=== PATIENT | male | born 1945 | race Caucasian/White ===

== ENCOUNTER 2021-07-14 15:05 | Outpatient (CLI) | payer MEDICARE | END 2021-07-14 15:06 | disposition critical access hospital (66) | LOC: EMS 15:05 | DX: M25.552 Pain in left hip (principal); M54.50 Low back pain, unspecified; R10.32 Left lower quadrant pain; W01.0XXA Fall on same level from slipping, tripping and stumbling without subsequent striking against object, initial encounter; Y93.E5 Activity, floor mopping and cleaning; Y92.008 Other place in unspecified non-institutional (private) residence as the place of occurrence of the external cause | CPT/HCPCS: A0425; A0429 ==

== ENCOUNTER 2021-07-14 15:49 | Inpatient (IN) | payer MEDICARE, OTHER ==
[2021-07-14] MEDS ORDERED: MORPHINE 2 MG/ML CARPUJECT IVP STA (15:58)
[2021-07-14 16:22] LABS: BASOPHILS % (AUTO) 0.3 %; EOSINOPHILS # (AUTO) 0.1 10^3/uL (0.0-0.7); EOSINOPHILS % (AUTO) 1.6 %; HCT - HEMATOCRIT 49.3 % (42.0-52.0); HGB - HEMOGLOBIN 15.8 g/dL (14.0-18.0); LYMPHOCYTES # (AUTO) 0.8 10^3/uL (1.5-3.5); LYMPHOCYTES % (AUTO) 12.4 %; MEAN CORPUSCULAR HEMOGLOBIN 28.7 pg (27.0-31.0); MEAN CORPUSCULAR VOLUME 89.6 fL (80.0-94.0); MEAN PLATELET VOLUME 10.5 fL (7.4-11.4); MONOCYTES # (AUTO) 0.6 10^3/uL (0.0-1.0); MONOCYTES % (AUTO) 8.9 %; NEUTROPHILS # (AUTO) 5.1 10^3/uL (1.5-6.6); NEUTROPHILS % (AUTO) 75.8 %; PLT - PLATELET COUNT 216 10^3/uL (130-450); WHITE BLOOD COUNT 6.7 x10^3/uL (4.8-10.8)
[2021-07-14 16:25] LABS: CALCIUM 9.3 mg/dL (8.5-10.3); CREATININE 1.2 mg/dL (0.6-1.2); POTASSIUM 4.7 mmol/L (3.5-5.0)
[2021-07-14] MEDS ORDERED: HYDROmorphone 1 MG/ML CARPUJECT IVP STA (16:43)
--- NOTE | 2021-07-14 16:51 | ED Physician Documentation ---
PD HPI LOWER EXT INJURY - Stated complaint Stated Complaint: FALL/LFT HIP PX - Chief complaint Chief Complaint: Trauma Ext - History obtained from History obtained from: Patient, EMS - History of Present Illness PD HPI LOW EXT INJURY LOCATION: Left, Hip Type of injury: Fall Where injury occurred: Home Timing - onset: How many hours ago (1) Timing - duration: Hours (1) Timing - details: Abrupt onset Pain level max: 9 Pain level now: 9 Improved by: Rest, Ice, Immobilization Worsened by: Moving, Palpating Associated symptoms: No: Weakness, Numbness, Tingling, Swelling Contributing factors: No: Anticoagulated Recently seen: Not recently seen - Additional information Additional information: 76-year-old male was in the kitchen today mopping the floor when he slipped fell and injured his left hip. Patient was unable to get up off the floor and unable to walk. Worse with movement, nothing makes it better. Review of Systems Ten Systems: 10 systems reviewed and negative Constitutional: denies: Fever, Chills GI: denies: Vomiting, Diarrhea Skin: denies: Rash PD PAST MEDICAL HISTORY - Past Medical History Past Medical History: Yes Cardiovascular: Hypertension, High cholesterol, Atrial fibrillation Respiratory: Other Neuro: Dementia Endocrine/Autoimmune: Other GI: GERD, Hemorrhoids Psych: Depression Musculoskeletal: Osteoarthritis - Past Surgical History Past Surgical History: Yes Ortho: Hip replacement, Knee replacement Cardiovascular: CABG Derm: Skin cancer surgery - Present Medications Home Medications: Ambulatory Orders Medication Instructions Recorded Confirmed Atorvastatin [Lipitor] 20 mg PO QPM 07/14/21 07/14/21 Clopidogrel [Plavix] 75 mg PO DAILY 07/14/21 07/14/21 Donepezil [Aricept] 5 mg PO QPM 07/14/21 07/14/21 Ferrous Sulfate 325 mg PO DAILY 07/14/21 07/14/21 Fluoxetine HCl [Prozac] 20 mg PO BID 07/14/21 07/14/21 Losartan [Cozaar] 50 mg PO DAILY 07/14/21 07/14/21 Metoprolol Succinate [Toprol Xl] 50 mg PO DAILY 07/14/21 07/14/21 Pantoprazole Sodium 40 mg PO DAILY 07/14/21 07/14/21 Spironolactone [Aldactone] 25 mg PO DAILY 07/14/21 07/14/21 Tamsulosin [Flomax] 0.4 mg PO DAILY 07/14/21 07/14/21 - Allergies Allergies/Adverse Reactions: Allergies Allergy/AdvReac Type Severity Reaction Status Date / Time No Known Drug Allergies Allergy Verified 07/14/21 15:57 - Social History Does the pt smoke?: No Smoking Status: Never smoker Does the pt drink ETOH?: Yes ETOH Use: Wine, Beer, Liquor Does the pt have substance abuse?: No - Immunizations Immunizations are current?: Yes - POLST Patient has POLST: No PD ED PE NORMAL - Vitals Vital signs reviewed: Yes - General General: Alert and oriented X 3, No acute distress - HEENT HEENT: Atraumatic, PERRL, Moist mucous membranes, Pharynx benign - Neck Neck: Supple, no meningeal sign, No bony TTP - Cardiac Cardiac: RRR - Respiratory Respiratory: No respiratory distress, Clear bilaterally - Back Back: No spinal TTP (No midline tenderness to palpation or percussion. No step-off or deformity) - Derm Derm: Warm and dry - Extremities Extremities: Other (Tender to palpation over the left hip, greater trochanter. Leg is held in flexion. Neurovascularly intact. Any range of motion causes pain) - Neuro Neuro: Alert and oriented X 3 - Psych Psych: Normal mood, Normal affect Results - Vitals Vitals: Vital Signs - 24 hr 07/14/21 15:49 Temperature 36.9 C Heart Rate 65 Respiratory 16 Rate Blood Pressure 170/103 H O2 Saturation 98 Oxygen O2 Source Room air - Labs Labs: Laboratory Tests 07/14/21 07/14/21 07/14/21 16:10 16:10 16:57 WBC 6.7 RBC 5.50 Hgb 15.8 Hct 49.3 MCV 89.6 MCH 28.7 MCHC 32.0 RDW 13.0 Plt Count 216 MPV 10.5 Neut # (Auto) 5.1 Lymph # (Auto) 0.8 L Wood # (Auto) 0.6 Eos # (Auto) 0.1 Baso # (Auto) 0.0 Absolute Nucleated RBC 0.00 Nucleated RBC % 0.0 Sodium 139 Potassium 4.7 Chloride 102 Carbon Dioxide 28 Anion Gap 9.0 BUN 22 H Creatinine 1.2 Estimated GFR (MDRD) 59 L Glucose 112 H Calcium 9.3 Nasal Adenovirus (PCR) NOT DETECTED Nasal B. parapertussis DNA (PCR) NOT DETECTED Nasal Coronavir 229E PCR NOT DETECTED Nasal Coronavir HKU1 PCR NOT DETECTED Nasal Coronavir NL63 PCR NOT DETECTED Nasal Coronavir OC43 PCR NOT DETECTED Nasal Enterovir/Rhinovir PCR NOT DETECTED Nasal Influenza B PCR NOT DETECTED Nasal Influenza A PCR NOT DETECTED Nasal Parainfluen 1 PCR NOT DETECTED Nasal Parainfluen 2 PCR NOT DETECTED Nasal Parainfluen 3 PCR NOT DETECTED Nasal Parainfluen 4 PCR NOT DETECTED Nasal RSV (PCR) NOT DETECTED Nasal B.pertussis DNA PCR NOT DETECTED Nasal C.pneumoniae (PCR) NOT DETECTED Carlos Human Metapneumo PCR NOT DETECTED Nasal M.pneumoniae (PCR) NOT DETECTED Nasal SARS-CoV-2 (PCR) NOT DETECTED - Rads (name of study) Left hip x-ray Radiology: Final report received, EMP read contemporaneously, See rad report (Left femoral neck fracture. ) cxr Radiology: Final report received, EMP read contemporaneously, See rad report (No acute process.) PD MEDICAL DECISION MAKING - ED course Complexity details: reviewed results, re-evaluated patient, considered differential, d/w patient, d/w vmware consultant ED course: Patient is a 76-year-old male who presents to the emergency department with a left hip fracture. Discussed the case with orthopedics, Dr. Jama who will plan on seeing the patient tomorrow. The patient will be admitted to the hospitalist service. Discussed with Dr. Delaney, hospitalist who accepts. No other acute injuries. Pain well controlled. Neurovascular intact. This document was made in part using voice recognition software. While efforts are made to proofread this document, sound alike and grammatical errors may oc cur. Departure - Departure Disposition: 66 [facility] DC/Xfer Clinical Impression: Hip fracture, left Qualifiers: Encounter type: initial encounter Fracture type: closed Qualified Code(s): S72.002A - Fracture of unspecified part of neck of left femur, initial encounter for closed fracture Condition: Stable Discharge Date/Time: 07/14/21 18:26
--- NOTE | 2021-07-14 16:57 | XRAY Report ---
PROCEDURE: Hip w/Pelvis 2-3V LT INDICATIONS: fall, hip pain TECHNIQUE: AP pelvis with lateral view(s) of the left hip. COMPARISON: None. FINDINGS: Bones: Moderately displaced and angulated left femoral neck fracture. Right hip arthroplasty. Pelvic ring appears intact. No suspicious bony lesions. Soft tissues: The visualized bowel gas pattern is normal. No suspicious soft tissue calcifications. IMPRESSION: Left femoral neck fracture. Reviewed by: Hilton Garcia MD on 07/14/2021 4:56 PM PST Approved by: Hilton Garcia MD on 07/14/2021 4:56 PM PST Station ID: [id number]
--- NOTE | 2021-07-14 16:58 | XRAY Report ---
PROCEDURE: Chest 1 View X-Ray INDICATIONS: pre=op TECHNIQUE: One view of the chest was acquired. COMPARISON: None FINDINGS: Surgical changes and devices: Median sternotomy. Lungs and pleura: No pleural effusions or pneumothorax. Lungs are clear. Mediastinum: Mediastinal contours appear normal. Heart size is normal. Bones and chest wall: No suspicious bony lesions. Overlying soft tissues appear unremarkable. IMPRESSION: No acute process. Reviewed by: Hilton Garcia MD on 07/14/2021 4:56 PM [facility] Approved by: Hilton Garcia MD on 07/14/2021 4:56 PM [facility] Station ID: [id number]
[2021-07-14] MEDS ORDERED: ONDANSETRON ODT 4 MG TABLET TL PRN (17:14)
[2021-07-14] MEDS ORDERED: ONDANSETRON 4 MG/2 ML VIAL IVP PRN (17:14)
--- NOTE | 2021-07-14 18:16 | PHARMACY PROGRESS NOTE ---
- Best Possible Medication History Admit Date and Time: 07/14/21 5853 Processed by: Nursing Medication History completed: Yes As the person ultimately responsible for medication therapy, providers are able to order a medication from an existing home medication list in [facility] via the "Reconcile Routine" prior to Confirmation of that medication by support teacher. Such practice is discouraged except when the physician, in their clinical judgment, deems that a medical need exists for a medication without regard to previous use.
[2021-07-14 18:31] LABS: B. PARAPERTUSSIS- RESP PCR PAN NOT DETECTED; B. PERTUSSIS- RESP PCR PANEL NOT DETECTED; C. PNEUMONIAE- RESP PCR PANEL NOT DETECTED; CORONAVIRUS 229E-RESP PCR NOT DETECTED; CORONAVIRUS HKU1-RESP PCR NOT DETECTED; CORONAVIRUS NL63-RESP PCR NOT DETECTED; CORONAVIRUS OC43-RESP PCR NOT DETECTED; HUMAN METAPNEUMOVIRUS NOT DETECTED; INFLUENZA A- RESP PCR PANEL NOT DETECTED; INFLUENZA B - RESP PCR PANEL NOT DETECTED; M. PNEUMONIAE- RESP PCR PANEL NOT DETECTED; PARAINFLUENZA VIRUS 1 NOT DETECTED; PARAINFLUENZA VIRUS 2 NOT DETECTED; PARAINFLUENZA VIRUS 3 NOT DETECTED; PARAINFLUENZA VIRUS 4 NOT DETECTED; RHINOVIRUS/ENTEROVIRUS NOT DETECTED; RSV- RESP PCR PANEL NOT DETECTED; SARS-CoV-2 -RESP PCR PANEL NOT DETECTED
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
[2021-07-14] MEDS: oxyCODONE 5 MG TABLET PO PRN (20:43)
[2021-07-14] MEDS: MORPHINE 2 MG/ML CARPUJECT IVP PRN (23:13)
[2021-07-15] MEDS: SODIUM CHLORIDE FLUSH 0.9% 10 ML SYRINGE IVP SCH ×3 (01:49→15:06)
[2021-07-15] MEDS: MORPHINE 2 MG/ML CARPUJECT IVP PRN ×3 (02:10→08:44)
[2021-07-15 05:26] LABS: BASOPHILS % (AUTO) 0.3 %; EOSINOPHILS # (AUTO) 0.1 10^3/uL (0.0-0.7); EOSINOPHILS % (AUTO) 0.6 %; HCT - HEMATOCRIT 43.8 % (42.0-52.0); HGB - HEMOGLOBIN 14.2 g/dL (14.0-18.0); LYMPHOCYTES # (AUTO) 0.8 10^3/uL (1.5-3.5); LYMPHOCYTES % (AUTO) 7.8 %; MEAN CORPUSCULAR HEMOGLOBIN 28.7 pg (27.0-31.0); MEAN CORPUSCULAR HGB CONC 32.4 g/dL (32.0-36.0); MEAN CORPUSCULAR VOLUME 88.7 fL (80.0-94.0); MONOCYTES # (AUTO) 0.9 10^3/uL (0.0-1.0); MONOCYTES % (AUTO) 9.2 %; NEUTROPHILS # (AUTO) 8.1 10^3/uL (1.5-6.6); NEUTROPHILS % (AUTO) 81.7 %; PLT - PLATELET COUNT 223 10^3/uL (130-450); RED BLOOD COUNT 4.94 10^6/uL (4.70-6.10); WHITE BLOOD COUNT 9.9 x10^3/uL (4.8-10.8)
[2021-07-15 05:34] LABS: CREATININE 1.1 mg/dL (0.6-1.2); POTASSIUM 4.7 mmol/L (3.5-5.0)
[2021-07-15] MEDS ORDERED: SODIUM CHLORIDE 0.9% 1,000 ML IV SCH (08:00)
[2021-07-15 08:04] LABS: INR 1.2 (0.8-1.2); PT - PROTHROMBIN TIME 13.3 secs (9.9-12.6)
[2021-07-15] MEDS: METOPROLOL SUCCINATE 50 MG TABLET PO SCH ×2 (08:39→09:00)
[2021-07-15] MEDS ORDERED: METOPROLOL SUCCINATE 50 MG TABLET PO SCH (09:00)
[2021-07-15] MEDS ORDERED: ENOXAPARIN 40 MG/0.4 ML SYRINGE SUBQ SCH (09:00)
[2021-07-15] MEDS: TAMSULOSIN 0.4 MG CAPSULE PO SCH (09:00)
[2021-07-15 09:36] LABS: ESTIMATED AVERAGE GLUCOSE 128 mg/dL (70-100); HEMOGLOBIN A1c% 6.1 % (4.27-6.07)
[2021-07-15] MEDS: ACETAMINOPHEN 325 MG TABLET PO PRN ×3 (09:47→20:36)
[2021-07-15] MEDS: oxyCODONE 5 MG TABLET PO PRN ×3 (09:47→21:30)
[2021-07-15] MEDS: SODIUM CHLORIDE 0.9% 1,000 ML IV SCH ×2 (11:06→18:45)
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
--- NOTE | 2021-07-15 15:39 | PROVIDER PROGRESS NOTE ---
Subjective - Prog Note Date Prog Note Date: 07/15/21 - Subjective Pt reports feeling: Improved Subjective: pt report his left hip pain is better after he had pain meds. tele report he had 5.1 seconds pause on telemetry, pt is asymptomatic. After hold pt's metoprolol, his tele did not show pause yet. I called pt's risk compliance analyst Dr. Elie Chicas. he recommend as we already did, hold metoprolol, continue tele monitor. If pt's tele did not show pause, then pt may continue to have surgery and does not need pacemaker. If pt still has problem, then he need to be transferred. Dr. Chicas also explained why pt was not on anticoagulation on his afib/flutter, but on Plavix because pt hah hx of GI bleed and sensitive to aspirin. Orthopedics surgeon know pt's this condition, will hold surgery on today. Current Medications - Current Medications Current Medications: Active Medications Acetaminophen (Acetaminophen 325 Mg Tablet) 650 mg PO Q4HR PRN PRN Reason: Pain 1 to 4 Last Admin: 07/15/21 14:24 Dose: 650 mg Atorvastatin Calcium (Atorvastatin 10 Mg Tablet) 20 mg PO QPM [facility] Donepezil HCl (Donepezil 5 Mg Tablet) 5 mg PO QPM [facility] Enoxaparin Sodium (Enoxaparin 40 Mg/0.4 Ml Syringe) 40 mg SUBQ DAILY [facility] Ferrous Sulfate (Ferrous Sulfate 325 Mg Tablet) 325 mg PO DAILYWM [facility] Fluoxetine HCl (Fluoxetine 10 Mg Capsule) 20 mg PO BID [facility] Hydromorphone HCl (Hydromorphone 0.5 Mg/0.5 Ml Syringe) 0.5 mg IVP Q2H PRN PRN Reason: PAIN Sodium Chloride (Normal Saline 0.9%) 1,000 mls @ 83.3 mls/hr IV .Q12H1M [facility] Stop: 07/16/21 10:57 Last Admin: 07/15/21 11:06 Dose: 83.3 mls/hr Ondansetron HCl (Ondansetron Odt 4 Mg Tablet) 4 mg TL Q6HR PRN PRN Reason: Nausea / Vomiting Ondansetron HCl (Ondansetron 4 Mg/2 Ml Vial) 4 mg IVP Q6HR PRN PRN Reason: Nausea / Vomiting Oxycodone HCl (Oxycodone 5 Mg Tablet) 5 mg PO Q4HR PRN PRN Reason: Pain 5 to 7 Last Admin: 07/15/21 14:25 Dose: 5 mg Pantoprazole Sodium (Pantoprazole 40 Mg Tablet) 40 mg PO QDAC [facility] Polyethylene Glycol (Polyethylene Glycol 3350 17 Gm Packet) 17 gm PO DAILY [facility] Sodium Chloride (Sodium Chloride Flush 0.9% 10 Ml Syringe) 10 ml IVP PRN PRN PRN Reason: NEEDED PER PROVIDER ORDERS Sodium Chloride (Sodium Chloride Flush 0.9% 10 Ml Syringe) 10 ml IVP 0100,0900,1700 [facility] Last Admin: 07/15/21 15:06 Dose: Not Given Tamsulosin HCl (Tamsulosin 0.4 Mg Capsule) 0.4 mg PO DAILY [facility] Last Admin: 07/15/21 09:00 Dose: Not Given Atorvastatin [Lipitor] 20 mg PO QPM 07/14/21 Clopidogrel [Plavix] 75 mg PO DAILY 07/14/21 Donepezil [Aricept] 5 mg PO QPM 07/14/21 Ferrous Sulfate 325 mg PO DAILY 07/14/21 Fluoxetine HCl [Prozac] 20 mg PO BID 07/14/21 Losartan [Cozaar] 50 mg PO DAILY 07/14/21 Metoprolol Succinate [Toprol Xl] 50 mg PO DAILY 07/14/21 Pantoprazole Sodium 40 mg PO DAILY 07/14/21 Spironolactone [Aldactone] 25 mg PO DAILY 07/14/21 Tamsulosin [Flomax] 0.4 mg PO DAILY 07/14/21 Objective - Vital Signs/Intake & Output Vital Signs: Vital Signs x48h Pulse Resp BP Pulse Ox 07/15/21 08:40 65 16 114/67 94 Intake & Output: Intake & Output 07/12/21 07/13/21 07/14/21 07/15/21 23:59 23:59 23:59 23:59 Intake Total 1106.667 Output Total 300 600 Balance -300 506.667 - Objective General Appearance: positive: No acute distress, Alert. negative: Lethargic Eyes Bilateral: positive: Normal inspection ENT: positive: ENT inspection nml, No signs of dehydration. negative: Purulent nasal drainage Neck: positive: Nml inspection, Trachea midline. negative: Tracheal deviation Respiratory: positive: Chest non-tender, No respiratory distress. negative: Wheezes Cardiovascular: positive: Regular rate & rhythm, No murmur. negative: Tachycardia, Bradycardia, Systolic murmur, Diastolic murmur Peripheral Pulses: 2+ Radial (R), 2+ Radial (L) Abdomen: positive: Non-tender, Nml bowel sounds, No distention. negative: Tenderness Back: positive: Nml inspection Skin: positive: Color nml, Warm, Dry. negative: Cyanosis Extremities: positive: Non-tender, Nml appearance Neurologic/Psychiatric: positive: Sensation nml. negative: Weakness, Sensory loss, Facial droop, Slurred/abnml speech, Depressed mood/affect - Lab Results Fish Bones: 07/15/21 04:30 07/15/21 04:30 Other Labs: Lab Results x24hrs 07/15/21 07/15/21 07/15/21 Range/Units 07:53 07:53 04:30 WBC (4.8-10.8) x10^3/uL RBC (4.70-6.10) 10^6/uL Hgb (14.0-18.0) g/dL Hct (42.0-52.0) % MCV (80.0-94.0) fL MCH (27.0-31.0) pg MCHC (32.0-36.0) g/dL RDW (12.0-15.0) % Plt Count (130-450) 10^3/uL MPV (7.4-11.4) fL Neut # (Auto) (1.5-6.6) 10^3/uL Lymph # (Auto) (1.5-3.5) 10^3/uL [place] # (Auto) (0.0-1.0) 10^3/uL Eos # (Auto) (0.0-0.7) 10^3/uL Baso # (Auto) (0.0-0.1) 10^3/uL Absolute Nucleated RBC x10^3/uL Nucleated RBC % /100WBC PT 13.3 H (9.9-12.6) secs INR 1.2 (0.8-1.2) Sodium (135-145) mmol/L Potassium (3.5-5.0) mmol/L Chloride (101-111) mmol/L Carbon Dioxide (21-32) mmol/L Anion Gap (6-13) BUN (6-20) mg/dL Creatinine (0.6-1.2) mg/dL Estimated GFR (MDRD) (>89) Glucose (70-100) mg/dL Estimat Average Glucose 128 H (70-100) mg/dL Hemoglobin A1c % 6.1 H (4.27-6.07) % Calcium (8.5-10.3) mg/dL Troponin I High Sens 5.2 (2.3-19.7) ng/L Nasal Adenovirus (PCR) Nasal B. parapertussis DNA (PCR) Nasal Coronavir 229E PCR Nasal Coronavir HKU1 PCR Nasal Coronavir NL63 PCR Nasal Coronavir OC43 PCR Nasal Enterovir/Rhinovir PCR Nasal Influenza B PCR Nasal Influenza A PCR Nasal Parainfluen 1 PCR Nasal Parainfluen 2 PCR Nasal Parainfluen 3 PCR Nasal Parainfluen 4 PCR Nasal RSV (PCR) Nasal B.pertussis DNA PCR Nasal C.pneumoniae (PCR) [place] Human Metapneumo PCR Nasal M.pneumoniae (PCR) Nasal SARS-CoV-2 (PCR) 07/15/21 07/15/21 07/14/21 Range/Units 04:30 04:30 16:57 WBC 9.9 (4.8-10.8) x10^3/uL RBC 4.94 (4.70-6.10) 10^6/uL Hgb 14.2 (14.0-18.0) g/dL Hct 43.8 (42.0-52.0) % MCV 88.7 (80.0-94.0) fL MCH 28.7 (27.0-31.0) pg MCHC 32.4 (32.0-36.0) g/dL RDW 13.0 (12.0-15.0) % Plt Count 223 (130-450) 10^3/uL MPV 11.0 (7.4-11.4) fL Neut # (Auto) 8.1 H (1.5-6.6) 10^3/uL Lymph # (Auto) 0.8 L (1.5-3.5) 10^3/uL [place] # (Auto) 0.9 (0.0-1.0) 10^3/uL Eos # (Auto) 0.1 (0.0-0.7) 10^3/uL Baso # (Auto) 0.0 (0.0-0.1) 10^3/uL Absolute Nucleated RBC 0.00 x10^3/uL Nucleated RBC % 0.0 /100WBC PT (9.9-12.6) secs INR (0.8-1.2) Sodium 139 (135-145) mmol/L Potassium 4.7 (3.5-5.0) mmol/L Chloride 101 (101-111) mmol/L Carbon Dioxide 25 (21-32) mmol/L Anion Gap 13.0 (6-13) BUN 23 H (6-20) mg/dL Creatinine 1.1 (0.6-1.2) mg/dL Estimated GFR (MDRD) 65 L (>89) Glucose 151 H (70-100) mg/dL Estimat Average Glucose (70-100) mg/dL Hemoglobin A1c % (4.27-6.07) % Calcium 9.0 (8.5-10.3) mg/dL Troponin I High Sens (2.3-19.7) ng/L Nasal Adenovirus (PCR) NOT DETECTED Nasal B. parapertussis DNA (PCR) NOT DETECTED Nasal Coronavir 229E PCR NOT DETECTED Nasal Coronavir HKU1 PCR NOT DETECTED Nasal Coronavir NL63 PCR NOT DETECTED Nasal Coronavir OC43 PCR NOT DETECTED Nasal Enterovir/Rhinovir PCR NOT DETECTED Nasal Influenza B PCR NOT DETECTED Nasal Influenza A PCR NOT DETECTED Nasal Parainfluen 1 PCR NOT DETECTED Nasal Parainfluen 2 PCR NOT DETECTED Nasal Parainfluen 3 PCR NOT DETECTED Nasal Parainfluen 4 PCR NOT DETECTED Nasal RSV (PCR) NOT DETECTED Nasal B.pertussis DNA PCR NOT DETECTED Nasal C.pneumoniae (PCR) NOT DETECTED [place] Human Metapneumo PCR NOT DETECTED Nasal M.pneumoniae (PCR) NOT DETECTED Nasal SARS-CoV-2 (PCR) NOT DETECTED 07/14/21 07/14/21 Range/Units 16:10 16:10 WBC 6.7 (4.8-10.8) x10^3/uL RBC 5.50 (4.70-6.10) 10^6/uL Hgb 15.8 (14.0-18.0) g/dL Hct 49.3 (42.0-52.0) % MCV 89.6 (80.0-94.0) fL MCH 28.7 (27.0-31.0) pg MCHC 32.0 (32.0-36.0) g/dL RDW 13.0 (12.0-15.0) % Plt Count 216 (130-450) 10^3/uL MPV 10.5 (7.4-11.4) fL Neut # (Auto) 5.1 (1.5-6.6) 10^3/uL Lymph # (Auto) 0.8 L (1.5-3.5) 10^3/uL [place] # (Auto) 0.6 (0.0-1.0) 10^3/uL Eos # (Auto) 0.1 (0.0-0.7) 10^3/uL Baso # (Auto) 0.0 (0.0-0.1) 10^3/uL Absolute Nucleated RBC 0.00 x10^3/uL Nucleated RBC % 0.0 /100WBC PT (9.9-12.6) secs INR (0.8-1.2) Sodium 139 (135-145) mmol/L Potassium 4.7 (3.5-5.0) mmol/L Chloride 102 (101-111) mmol/L Carbon Dioxide 28 (21-32) mmol/L Anion Gap 9.0 (6-13) BUN 22 H (6-20) mg/dL Creatinine 1.2 (0.6-1.2) mg/dL Estimated GFR (MDRD) 59 L (>89) Glucose 112 H (70-100) mg/dL Estimat Average Glucose (70-100) mg/dL Hemoglobin A1c % (4.27-6.07) % Calcium 9.3 (8.5-10.3) mg/dL Troponin I High Sens (2.3-19.7) ng/L Nasal Adenovirus (PCR) Nasal B. parapertussis DNA (PCR) Nasal Coronavir 229E PCR Nasal Coronavir HKU1 PCR Nasal Coronavir NL63 PCR Nasal Coronavir OC43 PCR Nasal Enterovir/Rhinovir PCR Nasal Influenza B PCR Nasal Influenza A PCR Nasal Parainfluen 1 PCR Nasal Parainfluen 2 PCR Nasal Parainfluen 3 PCR Nasal Parainfluen 4 PCR Nasal RSV (PCR) Nasal B.pertussis DNA PCR Nasal C.pneumoniae (PCR) [place] Human Metapneumo PCR Nasal M.pneumoniae (PCR) Nasal SARS-CoV-2 (PCR) ABX Reporting Has patient been on IV antibiotics over the past 48 hours?: No Assessment/Plan - Problem List (1) Hip fracture, left Impression: will hold surgery on today because pt has 5.1 second pause in tele. called pt's risk compliance analyst, recommend hold metoprolol, and continue tele monitor pt. ECHO reveal normal EF without obvious regional wall motion abnormality, RVSP 42mmHG and mild abnormal right heart pressure. continue pain control, tele monitor pt. start with Lovenox for DVT prophylaxis per surgeon's recommend. pt had pre-surgical assessment by another provider: Patient's calculated NSQUIP risk is 6.7% for any complications and 5.8% for more serious complications. (2)pause in telemetry pt had 5.1 second pause in tele, will hold metoprolol, and continue tele monitor overnight for pt. (3) Fall Conclusion/Plan: fall on level ground at home today. (4) Diabetes Conclusion/Plan: pre-diabetes, A1C 6.1, continue followup with his PCP (5) Dementia Conclusion/Plan: Patient with documented history of dementia confirmed with his . He is oriented and able to recall all recent events. He struggles with some memory issues. resume home Aricept (6) Generalized arteriosclerotic disease Conclusion/Plan: Patient has a history of CABG and arteriosclerotic disease and afib/flutter. as discussed with pt's risk compliance analyst, pt has hx of GI bleed and sensitive to aspirin , now pt is on Plavix. will hold Plavix now, start with Lovenox for DVT prophylaxis (7) Atrial fibrillation Conclusion/Plan: pt is on tele, pt has not at Afib with RVR, hold metoprolol for his pause, will resume his home Plavix as d/c Qualifiers: Encounter type: initial encounter Fracture type: closed Qualified Code(s): S72.002A - Fracture of unspecified part of neck of left femur, initial encounter for closed fracture
[2021-07-15] MEDS: ENOXAPARIN 40 MG/0.4 ML SYRINGE SUBQ SCH (20:35)
[2021-07-15] MEDS: ATORVASTATIN 10 MG TABLET PO SCH (20:35)
[2021-07-15] MEDS: DONEPEZIL 5 MG TABLET PO SCH (20:35)
[2021-07-15] MEDS: FLUoxetine 10 MG CAPSULE PO SCH (20:35)
[2021-07-16] MEDS: SODIUM CHLORIDE FLUSH 0.9% 10 ML SYRINGE IVP SCH ×3 (00:30→17:07)
[2021-07-16] MEDS: ACETAMINOPHEN 325 MG TABLET PO PRN ×3 (02:32→16:42)
[2021-07-16] MEDS: oxyCODONE 5 MG TABLET PO PRN ×4 (02:32→23:02)
[2021-07-16 05:19] LABS: BASOPHILS % (AUTO) 0.4 %; EOSINOPHILS # (AUTO) 0.3 10^3/uL (0.0-0.7); EOSINOPHILS % (AUTO) 3.8 %; HCT - HEMATOCRIT 40.3 % (42.0-52.0); LYMPHOCYTES # (AUTO) 1.3 10^3/uL (1.5-3.5); LYMPHOCYTES % (AUTO) 19.8 %; MEAN CORPUSCULAR HGB CONC 32.3 g/dL (32.0-36.0); MEAN PLATELET VOLUME 10.9 fL (7.4-11.4); MONOCYTES # (AUTO) 0.7 10^3/uL (0.0-1.0); MONOCYTES % (AUTO) 10.9 %; NEUTROPHILS # (AUTO) 4.4 10^3/uL (1.5-6.6); NEUTROPHILS % (AUTO) 64.8 %; PLT - PLATELET COUNT 173 10^3/uL (130-450); RED BLOOD COUNT 4.48 10^6/uL (4.70-6.10); RED CELL DISTRIBUTION WIDTH 12.8 % (12.0-15.0); WHITE BLOOD COUNT 6.8 x10^3/uL (4.8-10.8)
[2021-07-16 05:23] LABS: CALCIUM 8.1 mg/dL (8.5-10.3); CREATININE 0.9 mg/dL (0.6-1.2); POTASSIUM 3.8 mmol/L (3.5-5.0)
[2021-07-16] MEDS: PANTOPRAZOLE 40 MG TABLET PO SCH (05:33)
[2021-07-16] MEDS: FLUoxetine 10 MG CAPSULE PO SCH ×2 (09:25→20:00)
[2021-07-16] MEDS: ENOXAPARIN 40 MG/0.4 ML SYRINGE SUBQ SCH (09:27)
[2021-07-16] MEDS: polyethylene glycoL 3350 17 GM PACKET PO SCH (09:28)
[2021-07-16] MEDS: SPIRONOLACTONE 25 MG TABLET PO SCH (09:29)
[2021-07-16] MEDS: TAMSULOSIN 0.4 MG CAPSULE PO SCH (09:29)
[2021-07-16] MEDS: FERROUS SULFATE 325 MG TABLET PO SCH ×2 (09:46→09:49)
[2021-07-16] MEDS ORDERED: FERROUS GLUCONATE 324 MG TABLET PO SCH (10:00)
--- NOTE | 2021-07-16 11:13 | ANESTHESIA ---
Pre-Anesthesia VS, & Labs - Diagnosis left hip fracture - Procedure left hip hemiprosthesis Vital Signs: Temp Pulse Resp BP Pulse Ox 36.8 C 63 20 134/63 H 97 07/16/21 08:00 07/16/21 08:00 07/16/21 08:00 07/16/21 08:00 07/16/21 08:00 Height: 6 ft Weight (kg): 99 kg Body Mass Index: 29.6 BMI Classification: Overweight - NPO >8 hours - Lab Results Current Lab Results: Laboratory Tests 07/16/21 04:40: Sodium 136, Potassium 3.8, Chloride 103, Carbon Dioxide 25, Anion Gap 8.0, BUN 20, Creatinine 0.9, Estimated GFR (MDRD) 82 L, Glucose 113 H, Calcium 8.1 L 07/16/21 04:40: WBC 6.8, RBC 4.48 L, Hgb 13.0 L, Hct 40.3 L, MCV 90.0, MCH 29.0, MCHC 32.3, RDW 12.8, Plt Count 173, MPV 10.9, Neut # (Auto) 4.4, Lymph # (Auto) 1.3 L, [place] # (Auto) 0.7, Eos # (Auto) 0.3, Baso # (Auto) 0.0, Absolute Nucleated RBC 0.00, Nucleated RBC % 0.0 07/15/21 07:53: PT 13.3 H, INR 1.2 07/15/21 07:53: Troponin I High Sens 5.2 07/15/21 04:30: Estimat Average Glucose 128 H, Hemoglobin A1c % 6.1 H 07/15/21 04:30: Sodium 139, Potassium 4.7, Chloride 101, Carbon Dioxide 25, Anion Gap 13.0, BUN 23 H, Creatinine 1.1, Estimated GFR (MDRD) 65 L, Glucose 151 H, Calcium 9.0 07/15/21 04:30: WBC 9.9, RBC 4.94, Hgb 14.2, Hct 43.8, MCV 88.7, MCH 28.7, MCHC 32.4, RDW 13.0, Plt Count 223, MPV 11.0, Neut # (Auto) 8.1 H, Lymph # (Auto) 0.8 L, [place] # (Auto) 0.9, Eos # (Auto) 0.1, Baso # (Auto) 0.0, Absolute Nucleated RBC 0.00, Nucleated RBC % 0.0 07/14/21 16:10: Sodium 139, Potassium 4.7, Chloride 102, Carbon Dioxide 28, Anion Gap 9.0, BUN 22 H, Creatinine 1.2, Estimated GFR (MDRD) 59 L, Glucose 112 H, Calcium 9.3 07/14/21 16:10: WBC 6.7, RBC 5.50, Hgb 15.8, Hct 49.3, MCV 89.6, MCH 28.7, MCHC 32.0, RDW 13.0, Plt Count 216, MPV 10.5, Neut # (Auto) 5.1, Lymph # (Auto) 0.8 L , [place] # (Auto) 0.6, Eos # (Auto) 0.1, Baso # (Auto) 0.0, Absolute Nucleated RBC 0.00, Nucleated RBC % 0.0 Lab results reviewed: Yes Fish Bones: 07/16/21 04:40 07/16/21 04:40 Home Medications and Allergies Home Medications: Ambulatory Orders Atorvastatin [Lipitor] 20 mg PO QPM 07/14/21 Clopidogrel [Plavix] 75 mg PO DAILY 07/14/21 Donepezil [Aricept] 5 mg PO QPM 07/14/21 Ferrous Sulfate 325 mg PO DAILY 07/14/21 Fluoxetine HCl [Prozac] 20 mg PO BID 07/14/21 Losartan [Cozaar] 50 mg PO DAILY 07/14/21 Metoprolol Succinate [Toprol Xl] 50 mg PO DAILY 07/14/21 Pantoprazole Sodium 40 mg PO DAILY 07/14/21 Spironolactone [Aldactone] 25 mg PO DAILY 07/14/21 Tamsulosin [Flomax] 0.4 mg PO DAILY 07/14/21 Active Medications Acetaminophen (Acetaminophen 325 Mg Tablet) 650 mg PO Q4HR PRN PRN Reason: Pain 1 to 4 Last Admin: 07/16/21 09:46 Dose: 650 mg Atorvastatin Calcium (Atorvastatin 10 Mg Tablet) 20 mg PO QPM [facility] Last Admin: 07/15/21 20:35 Dose: 20 mg Donepezil HCl (Donepezil 5 Mg Tablet) 5 mg PO QPM [facility] Last Admin: 07/15/21 20:35 Dose: 5 mg Enoxaparin Sodium (Enoxaparin 40 Mg/0.4 Ml Syringe) 40 mg SUBQ DAILY [facility] Last Admin: 07/16/21 09:27 Dose: Not Given Ferrous Sulfate (Ferrous Sulfate 325 Mg Tablet) 325 mg PO DAILYWM [facility] Last Admin: 07/16/21 09:49 Dose: Not Given Fluoxetine HCl (Fluoxetine 10 Mg Capsule) 20 mg PO BID [facility] Last Admin: 07/16/21 09:25 Dose: 20 mg Hydromorphone HCl (Hydromorphone 0.5 Mg/0.5 Ml Syringe) 0.5 mg IVP Q2H PRN PRN Reason: PAIN Ondansetron HCl (Ondansetron Odt 4 Mg Tablet) 4 mg TL Q6HR PRN PRN Reason: Nausea / Vomiting Ondansetron HCl (Ondansetron 4 Mg/2 Ml Vial) 4 mg IVP Q6HR PRN PRN Reason: Nausea / Vomiting Oxycodone HCl (Oxycodone 5 Mg Tablet) 5 mg PO Q4HR PRN PRN Reason: Pain 5 to 7 Last Admin: 07/16/21 09:46 Dose: 5 mg Pantoprazole Sodium (Pantoprazole 40 Mg Tablet) 40 mg PO QDAC [facility] Last Admin: 07/16/21 05:33 Dose: Not Given Polyethylene Glycol (Polyethylene Glycol 3350 17 Gm Packet) 17 gm PO DAILY [facility] Last Admin: 07/16/21 09:28 Dose: Not Given Sodium Chloride (Sodium Chloride Flush 0.9% 10 Ml Syringe) 10 ml IVP PRN PRN PRN Reason: NEEDED PER PROVIDER ORDERS Sodium Chloride (Sodium Chloride Flush 0.9% 10 Ml Syringe) 10 ml IVP 0100,0900,1700 [facility] Last Admin: 07/16/21 09:28 Dose: 10 ml Spironolactone (Spironolactone 25 Mg Tablet) 25 mg PO DAILY [facility] Last Admin: 07/16/21 09:29 Dose: 25 mg Tamsulosin HCl (Tamsulosin 0.4 Mg Capsule) 0.4 mg PO DAILY [facility] Last Admin: 07/16/21 09:29 Dose: 0.4 mg Atorvastatin [Lipitor] 20 mg PO QPM 07/14/21 Clopidogrel [Plavix] 75 mg PO DAILY 07/14/21 Donepezil [Aricept] 5 mg PO QPM 07/14/21 Ferrous Sulfate 325 mg PO DAILY 07/14/21 Fluoxetine HCl [Prozac] 20 mg PO BID 07/14/21 Losartan [Cozaar] 50 mg PO DAILY 07/14/21 Metoprolol Succinate [Toprol Xl] 50 mg PO DAILY 07/14/21 Pantoprazole Sodium 40 mg PO DAILY 07/14/21 Spironolactone [Aldactone] 25 mg PO DAILY 07/14/21 Tamsulosin [Flomax] 0.4 mg PO DAILY 07/14/21 Allergies/Adverse Reactions: Allergies Allergy/AdvReac Type Severity Reaction Status Date / Time No Known Drug Allergies Allergy Verified 07/14/21 15:57 Anes History & Medical History - Anesthetic History Anesthesia Complications: reports: No previous complications Family history of Anesthesia Complications: Denies Family history of Malignant Hyperthermia: Denies - Medical History Cardiovascular: reports: Hypertension, High cholesterol, Coronary artery disease (s/p CABG 3 years ago), Atrial fibrillation Pulmonary: reports: Other Gastrointestinal: reports: GERD, Hemorrhoids Neuro: reports: Dementia Musculoskeletal: reports: Osteoarthritis Endocrine/Autoimmune: reports: Other Smoking Status: Never smoker - Surgical History Cardiothoracic: reports: CABG Orthopedic: reports: Hip replacement (R hip), Knee replacement Dermatologic: reports: Skin cancer surgery Results - Echo Results Echo Results: Report reviewed Exam General: Alert, Oriented x3, Cooperative, No acute distress Dental: Poor dentition Mouth Openin Fingerbreadth Neck Mobility: Reduced Mallampati classification: II Plan Anesthesia Type: General, Fascia Iliaca Block (CHRIS UGALDE) Regional Block: Per Surgeon's request for Post Op pain control Consent for Procedure(s) Verified and Reviewed: Yes Code Status: Attempt Resuscitation ASA classification: 3-Severe systemic disease Is this case an emergency?: No
[2021-07-16] MEDS ORDERED: LIDOCAINE MPF 2%-EPI 1:200000 20 ML VIAL ONE (11:15)
[2021-07-16] MEDS ORDERED: VANCOMYCIN 1 GM VIAL ONE (11:15)
[2021-07-16] MEDS ORDERED: BUPIVACAINE 0.25% PF 30 ML VIAL ONE (11:15)
[2021-07-16] MEDS ORDERED: PROPOFOL 200 MG/20 ML VIAL IVP ONE (11:31)
[2021-07-16] MEDS ORDERED: LIDOCAINE-MPF 2% 5 ML VIAL ONE (11:31)
[2021-07-16] MEDS ORDERED: KETOROLAC 30 MG/ML VIAL ONE (11:32)
[2021-07-16] MEDS ORDERED: ONDANSETRON 4 MG/2 ML VIAL ONE (11:32)
[2021-07-16] MEDS ORDERED: DEXAMETHASONE 4 MG/ML VIAL ONE (11:32)
[2021-07-16] MEDS ORDERED: SODIUM CHLORIDE 0.9% 10 ML VIAL IVP ONE (11:34)
[2021-07-16] MEDS ORDERED: fentaNYL 100 MCG/2 ML VIAL ONE (11:37)
[2021-07-16] MEDS ORDERED: ceFAZolin 1 GM VIAL ONE (12:11)
[2021-07-16] MEDS ORDERED: TRANEXAMIC ACID 1,000 MG/10 ML VIAL ONE (12:12)
[2021-07-16] MEDS ORDERED: ePHEDrine 50 MG/ML VIAL IVP ONE (12:19)
[2021-07-16] MEDS ORDERED: ROCURONIUM 50 MG/5 ML VIAL ONE (13:09)
--- NOTE | 2021-07-16 13:59 | PROVIDER PROGRESS NOTE ---
Assessment/Plan - Problem List (1) Hip fracture, left Qualifiers: Encounter type: initial encounter Fracture type: closed Qualified Code(s): S72.002A - Fracture of unspecified part of neck of left femur, initial encounter for closed fracture Assessment/Plan: 07/16 pt is on surgery for his left Hip repair. pt did not show significant pause in his tele monitor. will followup for s/p care for pt. will hold surgery on today because pt has 5.1 second pause in tele. called pt's strategic sourcing manager, recommend hold metoprolol, and continue tele monitor pt. ECHO reveal normal EF without obvious regional wall motion abnormality, RVSP 42mmHG and mild abnormal right heart pressure. continue pain control, tele monitor pt. start with Lovenox for DVT prophylaxis per surgeon's recommend. pt had pre-surgical assessment by another provider: Patient's calculated NSQUIP risk is 6.7% for any complications and 5.8% for more serious complications. (2)pause in telemetry pt did not show long pause in his tele monitor after hold his Metoprolol. continue tele monitor, continue hold his Metoprolol. updated to pt, hold his Metoprolol is also his strategic sourcing manager's Dr. Elie Chicas's recommendation. pt understood and will Follow-up with his strategic sourcing manager as outpatient. pt had 5.1 second pause in tele, will hold metoprolol, and continue tele monitor overnight for pt. (3) Fall Conclusion/Plan: fall on level ground at home today. (4) Diabetes Conclusion/Plan: pre-diabetes, A1C 6.1, continue followup with his PCP (5) Dementia Conclusion/Plan: Patient with documented history of dementia confirmed with his . He is oriented and able to recall all recent events. He struggles with some memory issues. resume home Aricept (6) Generalized arteriosclerotic disease Conclusion/Plan: Patient has a history of CABG and arteriosclerotic disease and afib/flutter. as discussed with pt's strategic sourcing manager, pt has hx of GI bleed and sensitive to aspiri n, now pt is on Plavix. will hold Plavix now, start with Lovenox for DVT prophylaxis (7) Atrial fibrillation Conclusion/Plan: pt is on tele, pt has not at Afib with RVR, hold metoprolol for his pause, will resume his home Plavix as d/c Qualifiers: Encounter type: initial encounter Fracture type: closed Qualified Code(s): S72.002A - Fracture of unspecified part of neck of left femur, initial encounter for closed fracture - Current Meds Current Meds: Current Medications Generic Name Dose Route Start Last Admin Trade Name Freq PRN Reason Stop Dose Admin Acetaminophen 650 mg 07/14/21 17:14 07/16/21 09:46 Acetaminophen 325 Mg Tablet PO 650 mg Q4HR PRN Administration Pain 1 to 4 Atorvastatin Calcium 20 mg 07/15/21 21:00 07/15/21 20:35 Atorvastatin 10 Mg Tablet PO 20 mg QPM [facility] Administration Donepezil HCl 5 mg 07/15/21 21:00 07/15/21 20:35 Donepezil 5 Mg Tablet PO 5 mg QPM [facility] Administration Enoxaparin Sodium 40 mg 07/15/21 21:00 07/16/21 09:27 Enoxaparin 40 Mg/0.4 Ml Syringe SUBQ Not Given DAILY [facility] Ferrous Sulfate 325 mg 07/16/21 08:00 07/16/21 09:49 Ferrous Sulfate 325 Mg Tablet PO Not Given DAILYWM [facility] Fluoxetine HCl 20 mg 07/15/21 21:00 07/16/21 09:25 Fluoxetine 10 Mg Capsule PO 20 mg BID [facility] Administration Oxycodone HCl 5 mg 07/14/21 17:14 07/16/21 09:46 Oxycodone 5 Mg Tablet PO 5 mg Q4HR PRN Administration Pain 5 to 7 Pantoprazole Sodium 40 mg 07/16/21 07:00 07/16/21 05:33 Pantoprazole 40 Mg Tablet PO Not Given QDAC [facility] Polyethylene Glycol 17 gm 07/16/21 09:00 07/16/21 09:28 Polyethylene Glycol 3350 17 Gm Packet PO Not Given DAILY [facility] Sodium Chloride 10 ml 07/15/21 01:00 07/16/21 09:28 Sodium Chloride Flush 0.9% 10 Ml Syringe IVP 10 ml 0100,0900,1700 [facility] Administration Spironolactone 25 mg 07/16/21 10:00 07/16/21 09:29 Spironolactone 25 Mg Tablet PO 25 mg DAILY [facility] Administration Tamsulosin HCl 0.4 mg 07/15/21 09:00 07/16/21 09:29 Tamsulosin 0.4 Mg Capsule PO 0.4 mg DAILY [facility] Administration - Lab Result Fish Bone Diagrams: 07/16/21 04:40 07/16/21 04:40 - Additional Planning My Orders: My Active Orders 07/15/21 21:00 Atorvastatin [Lipitor] 20 mg PO QPM Donepezil [Aricept] 5 mg PO QPM 07/16/21 00:01 NPO except Meds at Midnight [DIET] 07/16/21 07:00 Pantoprazole [Protonix] 40 mg PO QDAC 07/16/21 08:00 Ferrous Sulfate [Feosol] 325 mg PO DAILYWM 07/16/21 09:08 Telemetry- [RC] Q4HR 07/16/21 10:00 Spironolactone [Aldactone] 25 mg PO DAILY Subjective - Subjective Patient Reports: Feeling Better, Resting Comfortably Objective Vital Signs: Vital Signs - 24 hr 07/15/21 07/16/21 07/16/21 16:00 00:00 08:00 Temperature 37 C 37 C 36.8 C Heart Rate [ 64 66 63 Radial] Respiratory 16 12 20 Rate Blood Pressure 134/63 H [Left Brachial artery] Blood Pressure 128/64 126/67 [Right Brachial artery] O2 Saturation 96 93 97 Oxygen O2 Source Room air I&O (Last 24 Hrs): Intake and Output Totals x24h 07/14/21 07/15/21 07/16/21 23:59 23:59 23:59 Intake Total 4192.387 8530 Output Total 300 800 325 Balance -300 1143.912 675 General: Alert, Cooperative, No acute distress HEENT: Atraumatic Neck: Supple Lymphatic: no adenopathy Neuro: Alert, Non Focal, Oriented Times 3 Cardiovascular: Regular rate, Normal S1, Normal S2 Respiratory: Chest non-tender, No respiratory distress Abdomen: Normal bowel sounds, Soft, No tenderness Extremities: Normal pulses - Results Results: Laboratory Results WBC 6.8 x10^3/uL (4.8-10.8) 07/16/21 04:40 RBC 4.48 10^6/uL (4.70-6.10) L 07/16/21 04:40 Hgb 13.0 g/dL (14.0-18.0) L 07/16/21 04:40 Hct 40.3 % (42.0-52.0) L 07/16/21 04:40 MCV 90.0 fL (80.0-94.0) 07/16/21 04:40 MCH 29.0 pg (27.0-31.0) 07/16/21 04:40 MCHC 32.3 g/dL (32.0-36.0) 07/16/21 04:40 RDW 12.8 % (12.0-15.0) 07/16/21 04:40 Plt Count 173 10^3/uL (130-450) 07/16/21 04:40 MPV 10.9 fL (7.4-11.4) 07/16/21 04:40 Neut # (Auto) 4.4 10^3/uL (1.5-6.6) 07/16/21 04:40 Lymph # (Auto) 1.3 10^3/uL (1.5-3.5) L 07/16/21 04:40 [place] # (Auto) 0.7 10^3/uL (0.0-1.0) 07/16/21 04:40 Eos # (Auto) 0.3 10^3/uL (0.0-0.7) 07/16/21 04:40 Baso # (Auto) 0.0 10^3/uL (0.0-0.1) 07/16/21 04:40 Absolute Nucleated RBC 0.00 x10^3/uL 07/16/21 04:40 Nucleated RBC % 0.0 /100WBC 07/16/21 04:40 PT 13.3 secs (9.9-12.6) H 07/15/21 07:53 INR 1.2 (0.8-1.2) 07/15/21 07:53 Sodium 136 mmol/L (135-145) 07/16/21 04:40 Potassium 3.8 mmol/L (3.5-5.0) 07/16/21 04:40 Chloride 103 mmol/L (101-111) 07/16/21 04:40 Carbon Dioxide 25 mmol/L (21-32) 07/16/21 04:40 Anion Gap 8.0 (6-13) 07/16/21 04:40 BUN 20 mg/dL (6-20) 07/16/21 04:40 Creatinine 0.9 mg/dL (0.6-1.2) 07/16/21 04:40 Estimated GFR (MDRD) 82 (>89) L 07/16/21 04:40 Glucose 113 mg/dL (70-100) H 07/16/21 04:40 Estimat Average Glucose 128 mg/dL (70-100) H 07/15/21 04:30 Hemoglobin A1c % 6.1 % (4.27-6.07) H 07/15/21 04:30 Calcium 8.1 mg/dL (8.5-10.3) L 07/16/21 04:40 Troponin I High Sens 5.2 ng/L (2.3-19.7) 07/15/21 07:53 Nasal Adenovirus (PCR) NOT DETECTED 07/14/21 16:57 Nasal B. parapertussis DNA (PCR) NOT DETECTED 07/14/21 16:57 Nasal Coronavir 229E PCR NOT DETECTED 07/14/21 16:57 Nasal Coronavir HKU1 PCR NOT DETECTED 07/14/21 16:57 Nasal Coronavir NL63 PCR NOT DETECTED 07/14/21 16:57 Nasal Coronavir OC43 PCR NOT DETECTED 07/14/21 16:57 Nasal Enterovir/Rhinovir PCR NOT DETECTED 07/14/21 16:57 Nasal Influenza B PCR NOT DETECTED 07/14/21 16:57 Nasal Influenza A PCR NOT DETECTED 07/14/21 16:57 Nasal Parainfluen 1 PCR NOT DETECTED 07/14/21 16:57 Nasal Parainfluen 2 PCR NOT DETECTED 07/14/21 16:57 Nasal Parainfluen 3 PCR NOT DETECTED 07/14/21 16:57 Nasal Parainfluen 4 PCR NOT DETECTED 07/14/21 16:57 Nasal RSV (PCR) NOT DETECTED 07/14/21 16:57 Nasal B.pertussis DNA PCR NOT DETECTED 07/14/21 16:57 Nasal C.pneumoniae (PCR) NOT DETECTED 07/14/21 16:57 [place] Human Metapneumo PCR NOT DETECTED 07/14/21 16:57 Nasal M.pneumoniae (PCR) NOT DETECTED 07/14/21 16:57 Nasal SARS-CoV-2 (PCR) NOT DETECTED 07/14/21 16:57 ABX Reporting Has patient been on IV antibiotics over the past 48 hours?: No Current Medications - Current Medications Current Medications: Active Medications Acetaminophen (Acetaminophen 325 Mg Tablet) 650 mg PO Q4HR PRN PRN Reason: Pain 1 to 4 Last Admin: 07/16/21 09:46 Dose: 650 mg Atorvastatin Calcium (Atorvastatin 10 Mg Tablet) 20 mg PO QPM [facility] Last Admin: 07/15/21 20:35 Dose: 20 mg Donepezil HCl (Donepezil 5 Mg Tablet) 5 mg PO QPM [facility] Last Admin: 07/15/21 20:35 Dose: 5 mg Enoxaparin Sodium (Enoxaparin 40 Mg/0.4 Ml Syringe) 40 mg SUBQ DAILY [facility] Last Admin: 07/16/21 09:27 Dose: Not Given Ferrous Sulfate (Ferrous Sulfate 325 Mg Tablet) 325 mg PO DAILYWM [facility] Last Admin: 07/16/21 09:49 Dose: Not Given Fluoxetine HCl (Fluoxetine 10 Mg Capsule) 20 mg PO BID [facility] Last Admin: 07/16/21 09:25 Dose: 20 mg Hydromorphone HCl (Hydromorphone 0.5 Mg/0.5 Ml Syringe) 0.5 mg IVP Q2H PRN PRN Reason: PAIN Ondansetron HCl (Ondansetron Odt 4 Mg Tablet) 4 mg TL Q6HR PRN PRN Reason: Nausea / Vomiting Ondansetron HCl (Ondansetron 4 Mg/2 Ml Vial) 4 mg IVP Q6HR PRN PRN Reason: Nausea / Vomiting Oxycodone HCl (Oxycodone 5 Mg Tablet) 5 mg PO Q4HR PRN PRN Reason: Pain 5 to 7 Last Admin: 07/16/21 09:46 Dose: 5 mg Pantoprazole Sodium (Pantoprazole 40 Mg Tablet) 40 mg PO QDAC [facility] Last Admin: 07/16/21 05:33 Dose: Not Given Polyethylene Glycol (Polyethylene Glycol 3350 17 Gm Packet) 17 gm PO DAILY [facility] Last Admin: 07/16/21 09:28 Dose: Not Given Sodium Chloride (Sodium Chloride Flush 0.9% 10 Ml Syringe) 10 ml IVP PRN PRN PRN Reason: NEEDED PER PROVIDER ORDERS Sodium Chloride (Sodium Chloride Flush 0.9% 10 Ml Syringe) 10 ml IVP 0100,0900,1700 [facility] Last Admin: 07/16/21 09:28 Dose: 10 ml Spironolactone (Spironolactone 25 Mg Tablet) 25 mg PO DAILY [facility] Last Admin: 07/16/21 09:29 Dose: 25 mg Tamsulosin HCl (Tamsulosin 0.4 Mg Capsule) 0.4 mg PO DAILY [facility] Last Admin: 07/16/21 09:29 Dose: 0.4 mg Atorvastatin [Lipitor] 20 mg PO QPM 07/14/21 Clopidogrel [Plavix] 75 mg PO DAILY 07/14/21 Donepezil [Aricept] 5 mg PO QPM 07/14/21 Ferrous Sulfate 325 mg PO DAILY 07/14/21 Fluoxetine HCl [Prozac] 20 mg PO BID 07/14/21 Losartan [Cozaar] 50 mg PO DAILY 07/14/21 Metoprolol Succinate [Toprol Xl] 50 mg PO DAILY 07/14/21 Pantoprazole Sodium 40 mg PO DAILY 07/14/21 Spironolactone [Aldactone] 25 mg PO DAILY 07/14/21 Tamsulosin [Flomax] 0.4 mg PO DAILY 07/14/21
[2021-07-16] MEDS ORDERED: VANCOMYCIN 1 GM VIAL MC ONE (14:11)
[2021-07-16] MEDS ORDERED: SUGAMMADEX 200 MG/2 ML VIAL IVP ONE (14:15)
--- NOTE | 2021-07-16 14:15 | OPERATIVE REPORT ---
Operative Report - General Admit Date: 07/14/21 Procedure Date: 07/16/21 Planned Procedure: Left hip hemiarthroplasty Pre-Op Diagnosis: Displaced femoral neck fracture left hip Procedure Performed: Left hip hemiarthroplasty noncemented: Size 16 high offset Synergy femoral component, 50 mm cobalt chrome head and +12 mm neck Post Op Diagnosis: Same as preoperative diagnosis - Procedure Note Primary Surgeon: Néstor Jama MD Secondary Surgeon: Noe SMALL Anesthesia Technique: General ET tube Estimated Blood Loss (mL): 150 Indications: This is a 76-year-old ambulatory gentleman who took a fall at home. The fall occurred from standing height. He had isolated pain and inability to bear weight on the left leg. His exam showed shortening and rotational deformity to the left leg as well as marked pain with any passive movement of the left hip. His x-rays showed a displaced midcervical femoral neck fracture left hip. He has had previous total hip arthroplasty to right hip several years ago. He does have some history of cardiac disease including hypertension, atrial fibrillation and probably early dementia now. He is having more difficulty with memory and physical activity. He was admitted to the hospital and evaluated by our spitalist. He is identified as having an arrhythmia with slow heart rate. His beta-stefan was stopped and he seemed to improve, felt to be stable by hospitalist proceed with hip fracture surgery. The patient cannot give a true informed consent but he agreed to the surgery and I discussed the surgery yesterday and before surgery today with his ; she was in agreement to proceeding with the surgery. The risks, goals and alternatives, disability and potential were discussed with her. Findings: His fracture was somewhat lower than usual, mid cervical with a medial calcar spike of fracture extension. There was intact articular cartilage to the femoral head and the acetabulum did not show abnormal wear. A seem to have relatively good bone quality for press-fit hemiarthroplasty. Complications: None - Other Other Information/Narrative: After satisfactory anesthesia was achieved, the patient was placed in a lateral decubitus position and secured in this position with a pegboard. The left hip was facing superiorly. The left hip and left lower extremity were prepped and draped in a sterile manner in the usual fashion. An axillary roll had been placed beneath the right axilla. A timeout procedure was performed by the entire operating room team and all were in agreement. A 5 inch incision was made just below the base of the greater trochanter and extended proximally in a longitudinal fashion. The subcutaneous tissue and fascia julianne were split. A self-retaining retractor was inserted. The anterior one third of the gluteus medius insertion was released with electrocautery. With the leg adducted and externally rotated, anterior hip capsule was exposed. The anterior hip capsule was exposed in a T-shaped fashion and part of the capsule superiorly was excised to help expose the femoral head. The femoral head was removed with a corkscrew and T-handle. Bone calipers were used to measure the size of the femoral head, approximated 49 mm. Is a acetabulum was cleared of soft tissue and bony debris. The left leg was placed in a pocket over the anterior aspect of the table. The femoral canal was opened with a box osteotome, canal reamer and then multiple reamers up to 15 mm. The lateral canal reamer was also used. Broaching was carried out up to a #16 with a stable fit. Trial reductions were performed. There was leg length laxity with 0 neck length. A 12 mm neck length was finally utilized and this provided good stability to the hip. A high offset femoral component was utilized. Permanent components were inserted #16 press-fit femoral component which had excellent stability to push pull and rotation; high offset. The +12, 50 mm unipolar head was impacted on the trunnion. The hip was reduced and was stable and had good leg length tension. The hip joint was irrigated with dilute Betadine. A gram of vancomycin was inserted. The gluteus medius was reattached to the trochanter with Arthrex fiber tack suture and #1 strata fix suture. The fascia julianne was closed with #1 strata fix suture. The subcutaneous tissue was closed with 2 0 strata fix. The skin was closed with 3 0 strata fix subcuticular suture, Dermabond, silver impregnated dressing. Patient tolerated procedure well. He received 1 g of tranexmic acid and 2 g of Ancef. A physician assistant professor of marine biology was utilized and felt to be medically necessary to help with prepping and draping, positioning, protection of vital structures with retractors, reduction and wound closure.
[2021-07-16] MEDS ORDERED: LACTATED RINGERS 1,000 ML IV ONE (14:59)
[2021-07-16] MEDS ORDERED: MORPHINE 2 MG/ML CARPUJECT IVP PRN (15:23)
[2021-07-16] MEDS ORDERED: ePHEDrine 50 MG/ML VIAL IVP PRN (15:23)
[2021-07-16] MEDS ORDERED: NALOXONE 0.4 MG/ML VIAL IVP PRN (15:23)
[2021-07-16] MEDS ORDERED: METOCLOPRAMIDE 10 MG/2 ML VIAL IVP PRN (15:23)
[2021-07-16] MEDS ORDERED: HYDROmorphone 0.5 MG/0.5 ML SYRINGE IVP PRN (15:23)
[2021-07-16] MEDS ORDERED: ATROPINE ABBOJECT 1 MG/10 ML SYRINGE IVP PRN (15:23)
[2021-07-16] MEDS ORDERED: ONDANSETRON 4 MG/2 ML VIAL IVP PRN (15:23)
[2021-07-16] MEDS ORDERED: fentaNYL 100 MCG/2 ML VIAL IVP PRN (15:23)
--- NOTE | 2021-07-16 15:25 | ANESTHESIA POST OP EVALUATION ---
Anesthesia Post Eval - Post Anesthesia Eval Vitals: Last Vital Signs Temp 36.3 C L 07/16/21 15:10 Pulse 84 07/16/21 15:15 Resp 18 07/16/21 15:15 BP 148/92 H 07/16/21 15:15 Pulse Ox 95 07/16/21 15:15 CV Function Including HR & BP: Stable Pain Control: Satisfactory Nausea & Vomiting: Negative Mental Status: Baseline Respiratory Status: Airway Patent Hydration Status: Satisfactory Anesthesia Complications: None
[2021-07-16] MEDS ORDERED: LACTATED RINGERS 1,000 ML IV SCH (16:00)
[2021-07-16] MEDS: HYDROmorphone 0.5 MG/0.5 ML SYRINGE IVP PRN ×3 (16:42→23:02)
[2021-07-16] MEDS: ceFAZolin 2 GM in SODIUM CHLORIDE 0.9% 100ML 100 ML IV SCH (19:49)
[2021-07-16] MEDS: DONEPEZIL 5 MG TABLET PO SCH (20:00)
[2021-07-16] MEDS: ATORVASTATIN 10 MG TABLET PO SCH (20:00)
[2021-07-17] MEDS: HYDROmorphone 0.5 MG/0.5 ML SYRINGE IVP PRN ×6 (01:07→20:06)
[2021-07-17] MEDS: SODIUM CHLORIDE FLUSH 0.9% 10 ML SYRINGE IVP SCH ×3 (02:01→18:28)
[2021-07-17] MEDS: ACETAMINOPHEN 325 MG TABLET PO PRN ×4 (03:07→20:44)
[2021-07-17] MEDS: ceFAZolin 2 GM in SODIUM CHLORIDE 0.9% 100ML 100 ML IV SCH (03:13)
[2021-07-17] MEDS ORDERED: ceFAZolin 2 GM in SODIUM CHLORIDE 0.9% 100ML 100 ML IV ONE (04:15)
[2021-07-17 05:19] LABS: BASOPHILS % (AUTO) 0.1 %; EOSINOPHILS % (AUTO) 0.1 %; HGB - HEMOGLOBIN 11.6 g/dL (14.0-18.0); LYMPHOCYTES # (AUTO) 0.7 10^3/uL (1.5-3.5); LYMPHOCYTES % (AUTO) 7.7 %; MEAN CORPUSCULAR HEMOGLOBIN 29.5 pg (27.0-31.0); MEAN CORPUSCULAR HGB CONC 33.1 g/dL (32.0-36.0); MEAN CORPUSCULAR VOLUME 89.1 fL (80.0-94.0); MEAN PLATELET VOLUME 11.2 fL (7.4-11.4); MONOCYTES % (AUTO) 11.1 %; NEUTROPHILS # (AUTO) 7.5 10^3/uL (1.5-6.6); NEUTROPHILS % (AUTO) 80.6 %; PLT - PLATELET COUNT 180 10^3/uL (130-450); RED BLOOD COUNT 3.93 10^6/uL (4.70-6.10); RED CELL DISTRIBUTION WIDTH 12.5 % (12.0-15.0); WHITE BLOOD COUNT 9.4 x10^3/uL (4.8-10.8)
[2021-07-17 05:32] LABS: CALCIUM 8.4 mg/dL (8.5-10.3); CREATININE 0.9 mg/dL (0.6-1.2); POTASSIUM 4.2 mmol/L (3.5-5.0)
[2021-07-17] MEDS: oxyCODONE 5 MG TABLET PO PRN ×4 (05:36→20:44)
[2021-07-17] MEDS: PANTOPRAZOLE 40 MG TABLET PO SCH (05:39)
[2021-07-17 08:08] LABS: ABSOLUTE RETICS # AUTO 0.107 10^6/uL (0.020-0.110); RETICULOCYTE COUNT % (AUTO) 2.68 % (0.5-2.3)
[2021-07-17 08:43] LABS: % IRON SATURATION 11 % (20-50); IRON 24 ug/dL (45-182); TOTAL IRON BINDING CAPACITY 223 ug/dL (250-450); TRANSFERRIN 159 mg/dL (180-329)
[2021-07-17 08:45] LABS: FERRITIN 226.3 ng/mL (23.9-336.2)
[2021-07-17] MEDS ORDERED: LACTATED RINGERS 1,000 ML IV SCH (09:00)
[2021-07-17] MEDS: TAMSULOSIN 0.4 MG CAPSULE PO SCH (09:43)
[2021-07-17] MEDS: SPIRONOLACTONE 25 MG TABLET PO SCH (09:43)
[2021-07-17] MEDS: FLUoxetine 10 MG CAPSULE PO SCH ×2 (09:43→20:08)
[2021-07-17] MEDS: CLOPIDOGREL 75 MG TABLET PO SCH (09:43)
[2021-07-17] MEDS: FERROUS SULFATE 325 MG TABLET PO SCH (09:43)
[2021-07-17] MEDS: CHOLECALCIFEROL 25 MCG TABLET PO SCH (09:44)
[2021-07-17] MEDS: CALCIUM CARBONATE CHEW 500 MG TABLET PO SCH ×2 (09:44→20:10)
[2021-07-17] MEDS: polyethylene glycoL 3350 17 GM PACKET PO SCH (09:44)
[2021-07-17] MEDS: ENOXAPARIN 40 MG/0.4 ML SYRINGE SUBQ SCH (09:52)
[2021-07-17] MEDS: SODIUM CHLORIDE FLUSH 0.9% 10 ML SYRINGE IVP PRN ×2 (11:32→16:24)
--- NOTE | 2021-07-17 15:26 | PROVIDER PROGRESS NOTE ---
Assessment/Plan - Problem List (1) Hip fracture, left Qualifiers: Encounter type: initial encounter Fracture type: closed Qualified Code(s): S72.002A - Fracture of unspecified part of neck of left femur, initial encounter for closed fracture Assessment/Plan: 07/17 today is day 1 s/p of left hip repair, will continue Lovenox for DVT prophylaxis, Continue pain control, continue PT and OT, Consult with social work for disposition planning. will hold surgery on today because pt has 5.1 second pause in tele. called pt's electric range preparer, recommend hold metoprolol, and continue tele monitor pt. ECHO reveal normal EF without obvious regional wall motion abnormality, RVSP 42mmHG and mild abnormal right heart pressure. continue pain control, tele monitor pt. start with Lovenox for DVT prophylaxis per surgeon's recommend. pt had pre-surgical assessment by another provider: Patient's calculated NSQUIP risk is 6.7% for any complications and 5.8% for more serious complications. (2)pause in telemetry 07/17 stable, pt was finished his surgery. hold Metoprolol and continue tele monitor pt had 5.1 second pause in tele, will hold metoprolol, and continue tele monitor overnight for pt. (3) Fall Conclusion/Plan: fall on level ground at home today. (4) Diabetes Conclusion/Plan: pre-diabetes, A1C 6.1, continue followup with his PCP (5) Dementia Conclusion/Plan: 07/17 pt has very bad memory, he even did not remember he had surgery on yesterday. Patient with documented history of dementia confirmed with his . He is oriented and able to recall all recent events. He struggles with some memory issues. resume home Aricept (6) Generalized arteriosclerotic disease Conclusion/Plan: 07/17 stable, resume pt's plavix, continue lipitor, spironolactone, Losartan, continue tele and vital monitor Patient has a history of CABG and arteriosclerotic disease and afib/flutter. as discussed with pt's electric range preparer, pt has hx of GI bleed and sensitive to aspirin, now pt is on Plavix. will hold Plavix now, start with Lovenox for DVT prophylaxis (7) Atrial fibrillation Conclusion/Plan: pt is on tele, pt has not at Afib with RVR, hold metoprolol for his pause, will resume his home Plavix as d/c - Current Meds Current Meds: Current Medications Generic Name Dose Route Start Last Admin Trade Name Freq PRN Reason Stop Dose Admin Acetaminophen 650 mg 07/14/21 17:14 07/17/21 11:31 Acetaminophen 325 Mg Tablet PO 650 mg Q4HR PRN Administration Pain 1 to 4 Atorvastatin Calcium 20 mg 07/15/21 21:00 07/16/21 20:00 Atorvastatin 10 Mg Tablet PO 20 mg QPM CARMINA Administration Calcium Carbonate/Glycine 500 mg 07/17/21 10:00 07/17/21 09:44 Calcium Carbonate Chew 500 Mg Tablet PO 500 mg BID CARMINA Administration Cholecalciferol 50 mcg 07/17/21 10:00 07/17/21 09:44 Cholecalciferol 25 Mcg Tablet PO 50 mcg DAILY CARMINA Administration Clopidogrel Bisulfate 75 mg 07/17/21 09:00 07/17/21 09:43 Clopidogrel 75 Mg Tablet PO 75 mg DAILY CARMINA Administration Donepezil HCl 5 mg 07/15/21 21:00 07/16/21 20:00 Donepezil 5 Mg Tablet PO 5 mg QPM CARMINA Administration Enoxaparin Sodium 40 mg 07/15/21 21:00 07/17/21 09:52 Enoxaparin 40 Mg/0.4 Ml Syringe SUBQ 40 mg DAILY CARMINA Administration Ferrous Sulfate 325 mg 07/16/21 08:00 07/17/21 09:43 Ferrous Sulfate 325 Mg Tablet PO 325 mg DAILYWM CARMINA Administration Fluoxetine HCl 20 mg 07/15/21 21:00 07/17/21 09:43 Fluoxetine 10 Mg Capsule PO 20 mg BID CARMINA Administration Hydromorphone HCl 0.5 mg 07/15/21 11:59 07/17/21 11:32 Hydromorphone 0.5 Mg/0.5 Ml Syringe IVP 0.5 mg Q2H PRN Administration PAIN Lactated Ringer's 1,000 mls @ 100 mls/hr 07/17/21 09:00 07/17/21 09:52 Lr IV 07/17/21 18:59 100 mls/hr .Q10H CARMINA Administration Oxycodone HCl 5 mg 07/14/21 17:14 07/17/21 11:32 Oxycodone 5 Mg Tablet PO 5 mg Q4HR PRN Administration Pain 5 to 7 Pantoprazole Sodium 40 mg 07/16/21 07:00 07/17/21 05:39 Pantoprazole 40 Mg Tablet PO 40 mg QDAC CARMINA Administration Polyethylene Glycol 17 gm 07/16/21 09:00 07/17/21 09:44 Polyethylene Glycol 3350 17 Gm Packet PO 17 gm DAILY CARMINA Administration Sodium Chloride 10 ml 07/14/21 17:14 07/17/21 11:32 Sodium Chloride Flush 0.9% 10 Ml Syringe IVP 10 ml PRN PRN Administration NEEDED PER PROVIDER ORDERS Sodium Chloride 10 ml 07/15/21 01:00 07/17/21 09:44 Sodium Chloride Flush 0.9% 10 Ml Syringe IVP 10 ml 0100,0900,1700 CARMINA Administration Spironolactone 25 mg 07/16/21 10:00 07/17/21 09:43 Spironolactone 25 Mg Tablet PO 25 mg DAILY CARMINA Administration Tamsulosin HCl 0.4 mg 07/15/21 09:00 07/17/21 09:43 Tamsulosin 0.4 Mg Capsule PO 0.4 mg DAILY CARMINA Administration - Lab Result Fish Bone Diagrams: 07/17/21 04:41 07/17/21 04:41 - Additional Planning My Orders: My Active Orders 07/16/21 Dinner Regular Diet [DIET] 07/17/21 08:43 [place]atch Discontinuation [RC] ONCE 07/17/21 09:00 Clopidogrel [Plavix] 75 mg PO DAILY Lactated Ringers [Lr] 1,000 ml IV 100 mls/hr 07/17/21 10:00 Calcium Carbonate [Tums] 500 mg PO BID Cholecalciferol [Vitamin D3] 50 mcg PO DAILY Subjective - Subjective Patient Reports: Resting Comfortably Objective Vital Signs: Vital Signs - 24 hr 07/16/21 07/17/21 07/17/21 16:00 01:07 10:23 Temperature 36.4 C L 36.4 C L 36.5 C Heart Rate [ Activity] Heart Rate [ 42 L 133 H 88 Radial] Heart Rate [ Sitting] Heart Rate [ Supine] Respiratory 16 14 18 Rate Blood Pressure [Activity] Blood Pressure 134/61 H [Left Brachial artery] Blood Pressure 134/74 H 147/86 H [Right Brachial artery] Blood Pressure [Sitting] Blood Pressure [Supine] O2 Saturation 96 94 95 07/17/21 11:05 Temperature Heart Rate [ 105 H Activity] Heart Rate [ Radial] Heart Rate [ 133 H Sitting] Heart Rate [ 78 Supine] Respiratory Rate Blood Pressure 149/90 H [Activity] Blood Pressure [Left Brachial artery] Blood Pressure [Right Brachial artery] Blood Pressure 139/94 H [Sitting] Blood Pressure 121/91 H [Supine] O2 Saturation Oxygen O2 Source Room air I&O (Last 24 Hrs): Intake and Output Totals x24h 07/15/21 07/16/21 07/17/21 23:59 23:59 23:59 Intake Total 7463.903 6472 550 Output Total 352 639 5014 Balance 1143.912 560 -855 General: Alert, No acute distress HEENT: Atraumatic Neck: Supple Lymphatic: no adenopathy Neuro: Alert, Non Focal Cardiovascular: Regular rate, Normal S1, Normal S2 Respiratory: Chest non-tender, No respiratory distress Abdomen: Normal bowel sounds, Soft Extremities: Normal pulses - Results Results: Laboratory Results WBC 9.4 x10^3/uL (4.8-10.8) 07/17/21 04:41 RBC 3.93 10^6/uL (4.70-6.10) L 07/17/21 04:41 RBC 4.00 10^6/uL (4.70-6.10) L 07/17/21 04:41 Hgb 11.6 g/dL (14.0-18.0) L 07/17/21 04:41 Hct 35.0 % (42.0-52.0) L 07/17/21 04:41 MCV 89.1 fL (80.0-94.0) 07/17/21 04:41 MCH 29.5 pg (27.0-31.0) 07/17/21 04:41 MCHC 33.1 g/dL (32.0-36.0) 07/17/21 04:41 RDW 12.5 % (12.0-15.0) 07/17/21 04:41 Plt Count 180 10^3/uL (130-450) 07/17/21 04:41 MPV 11.2 fL (7.4-11.4) 07/17/21 04:41 Reticulocyte % (Auto) 2.68 % (0.5-2.3) H 07/17/21 04:41 Neut # (Auto) 7.5 10^3/uL (1.5-6.6) H 07/17/21 04:41 Lymph # (Auto) 0.7 10^3/uL (1.5-3.5) L 07/17/21 04:41 [place] # (Auto) 1.0 10^3/uL (0.0-1.0) 07/17/21 04:41 Eos # (Auto) 0.0 10^3/uL (0.0-0.7) 07/17/21 04:41 Baso # (Auto) 0.0 10^3/uL (0.0-0.1) 07/17/21 04:41 Absolute Nucleated RBC 0.00 x10^3/uL 07/17/21 04:41 Nucleated RBC % 0.0 /100WBC 07/17/21 04:41 Absolute Retic 0.107 10^6/uL (0.020-0.110) 07/17/21 04:41 PT 13.3 secs (9.9-12.6) H 07/15/21 07:53 INR 1.2 (0.8-1.2) 07/15/21 07:53 Sodium 136 mmol/L (135-145) 07/17/21 04:41 Potassium 4.2 mmol/L (3.5-5.0) 07/17/21 04:41 Chloride 101 mmol/L (101-111) 07/17/21 04:41 Carbon Dioxide 25 mmol/L (21-32) 07/17/21 04:41 Anion Gap 10.0 (6-13) 07/17/21 04:41 BUN 16 mg/dL (6-20) 07/17/21 04:41 Creatinine 0.9 mg/dL (0.6-1.2) 07/17/21 04:41 Estimated GFR (MDRD) 82 (>89) L 07/17/21 04:41 Glucose 139 mg/dL (70-100) H 07/17/21 04:41 Estimat Average Glucose 128 mg/dL (70-100) H 07/15/21 04:30 Hemoglobin A1c % 6.1 % (4.27-6.07) H 07/15/21 04:30 Calcium 8.4 mg/dL (8.5-10.3) L 07/17/21 04:41 Iron 24 ug/dL (45-182) L 07/17/21 04:41 TIBC 223 ug/dL (250-450) L 07/17/21 04:41 % Saturation 11 % (20-50) L 07/17/21 04:41 Transferrin 159 mg/dL (180-329) L 07/17/21 04:41 Ferritin 226.3 ng/mL (23.9-336.2) 07/17/21 04:41 Lactate Dehydrogenase 192 IU/L (91-225) 07/17/21 04:41 Troponin I High Sens 5.2 ng/L (2.3-19.7) 07/15/21 07:53 Vitamin B12 304 pg/mL (180-914) 07/17/21 04:41 Nasal Adenovirus (PCR) NOT DETECTED 07/14/21 16:57 Nasal B. parapertussis DNA (PCR) NOT DETECTED 07/14/21 16:57 Nasal Coronavir 229E PCR NOT DETECTED 07/14/21 16:57 Nasal Coronavir HKU1 PCR NOT DETECTED 07/14/21 16:57 Nasal Coronavir NL63 PCR NOT DETECTED 07/14/21 16:57 Nasal Coronavir OC43 PCR NOT DETECTED 07/14/21 16:57 Nasal Enterovir/Rhinovir PCR NOT DETECTED 07/14/21 16:57 Nasal Influenza B PCR NOT DETECTED 07/14/21 16:57 Nasal Influenza A PCR NOT DETECTED 07/14/21 16:57 Nasal Parainfluen 1 PCR NOT DETECTED 07/14/21 16:57 Nasal Parainfluen 2 PCR NOT DETECTED 07/14/21 16:57 Nasal Parainfluen 3 PCR NOT DETECTED 07/14/21 16:57 Nasal Parainfluen 4 PCR NOT DETECTED 07/14/21 16:57 Nasal RSV (PCR) NOT DETECTED 07/14/21 16:57 Nasal B.pertussis DNA PCR NOT DETECTED 07/14/21 16:57 Nasal C.pneumoniae (PCR) NOT DETECTED 07/14/21 16:57 Carlos Human Metapneumo PCR NOT DETECTED 07/14/21 16:57 Nasal M.pneumoniae (PCR) NOT DETECTED 07/14/21 16:57 Nasal SARS-CoV-2 (PCR) NOT DETECTED 07/14/21 16:57 ABX Reporting Has patient been on IV antibiotics over the past 48 hours?: No Current Medications - Current Medications Current Medications: Active Medications Acetaminophen (Acetaminophen 325 Mg Tablet) 650 mg PO Q4HR PRN PRN Reason: Pain 1 to 4 Last Admin: 07/17/21 11:31 Dose: 650 mg Atorvastatin Calcium (Atorvastatin 10 Mg Tablet) 20 mg PO QPM [facility] Last Admin: 07/16/21 20:00 Dose: 20 mg Calcium Carbonate/Glycine (Calcium Carbonate Chew 500 Mg Tablet) 500 mg PO BID [facility] Last Admin: 07/17/21 09:44 Dose: 500 mg Cholecalciferol (Cholecalciferol 25 Mcg Tablet) 50 mcg PO DAILY [facility] Last Admin: 07/17/21 09:44 Dose: 50 mcg Clopidogrel Bisulfate (Clopidogrel 75 Mg Tablet) 75 mg PO DAILY [facility] Last Admin: 07/17/21 09:43 Dose: 75 mg Donepezil HCl (Donepezil 5 Mg Tablet) 5 mg PO QPM [facility] Last Admin: 07/16/21 20:00 Dose: 5 mg Enoxaparin Sodium (Enoxaparin 40 Mg/0.4 Ml Syringe) 40 mg SUBQ DAILY [facility] Last Admin: 07/17/21 09:52 Dose: 40 mg Ferrous Sulfate (Ferrous Sulfate 325 Mg Tablet) 325 mg PO DAILYWM [facility] Last Admin: 07/17/21 09:43 Dose: 325 mg Fluoxetine HCl (Fluoxetine 10 Mg Capsule) 20 mg PO BID [facility] Last Admin: 07/17/21 09:43 Dose: 20 mg Hydromorphone HCl (Hydromorphone 0.5 Mg/0.5 Ml Syringe) 0.5 mg IVP Q2H PRN PRN Reason: PAIN Last Admin: 07/17/21 11:32 Dose: 0.5 mg Lactated Ringer's (Lr) 1,000 mls @ 100 mls/hr IV .Q10H [facility] Stop: 07/17/21 18:59 Last Admin: 07/17/21 09:52 Dose: 100 mls/hr Losartan Potassium (Losartan 50 Mg Tablet) 50 mg PO DAILY [facility] Ondansetron HCl (Ondansetron Odt 4 Mg Tablet) 4 mg TL Q6HR PRN PRN Reason: Nausea / Vomiting Ondansetron HCl (Ondansetron 4 Mg/2 Ml Vial) 4 mg IVP Q6HR PRN PRN Reason: Nausea / Vomiting Oxycodone HCl (Oxycodone 5 Mg Tablet) 5 mg PO Q4HR PRN PRN Reason: Pain 5 to 7 Last Admin: 07/17/21 11:32 Dose: 5 mg Pantoprazole Sodium (Pantoprazole 40 Mg Tablet) 40 mg PO QDAC [facility] Last Admin: 07/17/21 05:39 Dose: 40 mg Polyethylene Glycol (Polyethylene Glycol 3350 17 Gm Packet) 17 gm PO DAILY [facility] Last Admin: 07/17/21 09:44 Dose: 17 gm Sodium Chloride (Sodium Chloride Flush 0.9% 10 Ml Syringe) 10 ml IVP PRN PRN PRN Reason: NEEDED PER PROVIDER ORDERS Last Admin: 07/17/21 11:32 Dose: 10 ml Sodium Chloride (Sodium Chloride Flush 0.9% 10 Ml Syringe) 10 ml IVP 0100,0900,1700 [facility] Last Admin: 07/17/21 09:44 Dose: 10 ml Spironolactone (Spironolactone 25 Mg Tablet) 25 mg PO DAILY [facility] Last Admin: 07/17/21 09:43 Dose: 25 mg Tamsulosin HCl (Tamsulosin 0.4 Mg Capsule) 0.4 mg PO DAILY [facility] Last Admin: 07/17/21 09:43 Dose: 0.4 mg Atorvastatin [Lipitor] 20 mg PO QPM 07/14/21 Clopidogrel [Plavix] 75 mg PO DAILY 07/14/21 Donepezil [Aricept] 5 mg PO QPM 07/14/21 Ferrous Sulfate 325 mg PO DAILY 07/14/21 Fluoxetine HCl [Prozac] 20 mg PO BID 07/14/21 Losartan [Cozaar] 50 mg PO DAILY 07/14/21 Metoprolol Succinate [Toprol Xl] 50 mg PO DAILY 07/14/21 Pantoprazole Sodium 40 mg PO DAILY 07/14/21 Spironolactone [Aldactone] 25 mg PO DAILY 07/14/21 Tamsulosin [Flomax] 0.4 mg PO DAILY 07/14/21
[2021-07-17] MEDS ORDERED: FERROUS GLUCONATE 324 MG TABLET PO SCH (16:00)
[2021-07-17] MEDS: DONEPEZIL 5 MG TABLET PO SCH (20:08)
[2021-07-17] MEDS: ATORVASTATIN 10 MG TABLET PO SCH (20:08)
[2021-07-18] MEDS: SODIUM CHLORIDE FLUSH 0.9% 10 ML SYRINGE IVP SCH ×3 (00:50→18:43)
[2021-07-18] MEDS: ACETAMINOPHEN 325 MG TABLET PO PRN ×3 (04:17→18:43)
[2021-07-18] MEDS: oxyCODONE 5 MG TABLET PO PRN ×4 (04:18→18:43)
[2021-07-18] MEDS: PANTOPRAZOLE 40 MG TABLET PO SCH (06:04)
[2021-07-18 07:26] LABS: CALCIUM 8.4 mg/dL (8.5-10.3); CREATININE 0.9 mg/dL (0.6-1.2); POTASSIUM 4.1 mmol/L (3.5-5.0)
[2021-07-18 07:51] LABS: BASOPHILS % (AUTO) 0.4 %; EOSINOPHILS # (AUTO) 0.1 10^3/uL (0.0-0.7); EOSINOPHILS % (AUTO) 1.3 %; HCT - HEMATOCRIT 33.7 % (42.0-52.0); HGB - HEMOGLOBIN 10.9 g/dL (14.0-18.0); LYMPHOCYTES # (AUTO) 1.1 10^3/uL (1.5-3.5); LYMPHOCYTES % (AUTO) 13.1 %; MEAN CORPUSCULAR HGB CONC 32.3 g/dL (32.0-36.0); MEAN CORPUSCULAR VOLUME 89.6 fL (80.0-94.0); MEAN PLATELET VOLUME 11.2 fL (7.4-11.4); MONOCYTES # (AUTO) 1.1 10^3/uL (0.0-1.0); MONOCYTES % (AUTO) 13.3 %; NEUTROPHILS # (AUTO) 5.9 10^3/uL (1.5-6.6); NEUTROPHILS % (AUTO) 71.4 %; PLT - PLATELET COUNT 189 10^3/uL (130-450); RED BLOOD COUNT 3.76 10^6/uL (4.70-6.10); RED CELL DISTRIBUTION WIDTH 12.6 % (12.0-15.0); WHITE BLOOD COUNT 8.3 x10^3/uL (4.8-10.8)
[2021-07-18] MEDS: SPIRONOLACTONE 25 MG TABLET PO SCH (09:15)
[2021-07-18] MEDS: TAMSULOSIN 0.4 MG CAPSULE PO SCH (09:15)
[2021-07-18] MEDS: CALCIUM CARBONATE CHEW 500 MG TABLET PO SCH ×2 (09:15→21:36)
[2021-07-18] MEDS: LOSARTAN 50 MG TABLET PO SCH (09:15)
[2021-07-18] MEDS: CLOPIDOGREL 75 MG TABLET PO SCH (09:15)
[2021-07-18] MEDS: FLUoxetine 10 MG CAPSULE PO SCH ×2 (09:15→21:35)
[2021-07-18] MEDS: FERROUS SULFATE 325 MG TABLET PO SCH (09:16)
[2021-07-18] MEDS: ENOXAPARIN 40 MG/0.4 ML SYRINGE SUBQ SCH (09:16)
[2021-07-18] MEDS: polyethylene glycoL 3350 17 GM PACKET PO SCH (09:16)
[2021-07-18] MEDS: CHOLECALCIFEROL 25 MCG TABLET PO SCH (09:16)
[2021-07-18] MEDS: HYDROmorphone 0.5 MG/0.5 ML SYRINGE IVP PRN (11:44)
[2021-07-18 13:14] LABS: B. PARAPERTUSSIS- RESP PCR PAN NOT DETECTED; B. PERTUSSIS- RESP PCR PANEL NOT DETECTED; C. PNEUMONIAE- RESP PCR PANEL NOT DETECTED; CORONAVIRUS 229E-RESP PCR NOT DETECTED; CORONAVIRUS HKU1-RESP PCR NOT DETECTED; CORONAVIRUS NL63-RESP PCR NOT DETECTED; CORONAVIRUS OC43-RESP PCR NOT DETECTED; HUMAN METAPNEUMOVIRUS NOT DETECTED; INFLUENZA A- RESP PCR PANEL NOT DETECTED; INFLUENZA B - RESP PCR PANEL NOT DETECTED; M. PNEUMONIAE- RESP PCR PANEL NOT DETECTED; PARAINFLUENZA VIRUS 1 NOT DETECTED; PARAINFLUENZA VIRUS 2 NOT DETECTED; PARAINFLUENZA VIRUS 3 NOT DETECTED; PARAINFLUENZA VIRUS 4 NOT DETECTED; RHINOVIRUS/ENTEROVIRUS NOT DETECTED; RSV- RESP PCR PANEL NOT DETECTED; SARS-CoV-2 -RESP PCR PANEL NOT DETECTED
--- NOTE | 2021-07-18 13:56 | PROVIDER PROGRESS NOTE ---
Assessment/Plan - Problem List (1) Hip fracture, left Qualifiers: Encounter type: initial encounter Fracture type: closed Qualified Code(s): S72.002A - Fracture of unspecified part of neck of left femur, initial encounter for closed fracture Assessment/Plan: 07/18 pt is easy forgetful, he even did not remember he had surgery for his repair. Discussed with nurse for pt's care. we will d/c [place]. continue pain control, continue PT/OT, continue Lovenox for DVT prophylaxis. continue consult with orthopedics, and social insurance analyst for d/c planning. 07/17 today is day 1 s/p of left hip repair, will continue Lovenox for DVT prophylaxis, Continue pain control, continue PT and OT, Consult with social work for disposition planning. will hold surgery on today because pt has 5.1 second pause in tele. called pt's platinum and palladium kettle tender, recommend hold metoprolol, and continue tele monitor pt. ECHO reveal normal EF without obvious regional wall motion abnormality, RVSP 42mmHG and mild abnormal right heart pressure. continue pain control, tele monitor pt. start with Lovenox for DVT prophylaxis per surgeon's recommend. pt had pre-surgical assessment by another provider: Patient's calculated NSQUIP risk is 6.7% for any complications and 5.8% for more serious complications. (2)pause in telemetry 07/18 stable, pt may followup with his platinum and palladium kettle tender as out-pt 07/17 stable, pt was finished his surgery. hold Metoprolol and continue tele monitor pt had 5.1 second pause in tele, will hold metoprolol, and continue tele monitor overnight for pt. (3) Fall Conclusion/Plan: fall on level ground at home today. (4) Diabetes Conclusion/Plan: pre-diabetes, A1C 6.1, continue followup with his PCP (5) Dementia Conclusion/Plan: 07/17 pt has very bad memory, he even did not remember he had surgery on yesterday. Patient with documented history of dementia confirmed with his . He is oriented and able to recall all recent events. He struggles with some memory issues. resume home Aricept (6) Generalized arteriosclerotic disease Conclusion/Plan: 07/17 stable, resume pt's plavix, continue lipitor, spironolactone, Losartan, continue tele and vital monitor Patient has a history of CABG and arteriosclerotic disease and afib/flutter. as discussed with pt's platinum and palladium kettle tender, pt has hx of GI bleed and sensitive to aspirin, now pt is on Plavix. will hold Plavix now, start with Lovenox for DVT prophylaxis (7) Atrial fibrillation Conclusion/Plan: pt is on tele, pt has not at Afib with RVR, hold metoprolol for his pause, will resume his home Plavix as d/c - Current Meds Current Meds: Current Medications Generic Name Dose Route Start Last Admin Trade Name Freq PRN Reason Stop Dose Admin Acetaminophen 650 mg 07/14/21 17:14 07/18/21 09:16 Acetaminophen 325 Mg Tablet PO 650 mg Q4HR PRN Administration Pain 1 to 4 Atorvastatin Calcium 20 mg 07/15/21 21:00 07/17/21 20:08 Atorvastatin 10 Mg Tablet PO 20 mg QPM CARMINA Administration Calcium Carbonate/Glycine 500 mg 07/17/21 10:00 07/18/21 09:15 Calcium Carbonate Chew 500 Mg Tablet PO 500 mg BID CARMINA Administration Cholecalciferol 50 mcg 07/17/21 10:00 07/18/21 09:16 Cholecalciferol 25 Mcg Tablet PO 50 mcg DAILY [facility] Administration Clopidogrel Bisulfate 75 mg 07/17/21 09:00 07/18/21 09:15 Clopidogrel 75 Mg Tablet PO 75 mg DAILY [facility] Administration Donepezil HCl 5 mg 07/15/21 21:00 07/17/21 20:08 Donepezil 5 Mg Tablet PO 5 mg QPM CARMINA Administration Enoxaparin Sodium 40 mg 07/15/21 21:00 07/18/21 09:16 Enoxaparin 40 Mg/0.4 Ml Syringe SUBQ 40 mg DAILY CAR[facility]A Administration Ferrous Sulfate 325 mg 07/16/21 08:00 07/18/21 09:16 Ferrous Sulfate 325 Mg Tablet PO 325 mg DAILYWM CARMINA Administration Fluoxetine HCl 20 mg 07/15/21 21:00 07/18/21 09:15 Fluoxetine 10 Mg Capsule PO 20 mg BID CARMINA Administration Hydromorphone HCl 0.5 mg 07/15/21 11:59 07/18/21 11:44 Hydromorphone 0.5 Mg/0.5 Ml Syringe IVP 0.5 mg Q2H PRN Administration PAIN Losartan Potassium 50 mg 07/18/21 09:00 07/18/21 09:15 Losartan 50 Mg Tablet PO 50 mg DAILY [facility] Administration Oxycodone HCl 5 mg 07/14/21 17:14 07/18/21 11:44 Oxycodone 5 Mg Tablet PO 5 mg Q4HR PRN Administration Pain 5 to 7 Pantoprazole Sodium 40 mg 07/16/21 07:00 07/18/21 06:04 Pantoprazole 40 Mg Tablet PO 40 mg QDAC [facility] Administration Polyethylene Glycol 17 gm 07/16/21 09:00 07/18/21 09:16 Polyethylene Glycol 3350 17 Gm Packet PO 17 gm DAILY [facility] Administration Sodium Chloride 10 ml 07/14/21 17:14 07/17/21 16:24 Sodium Chloride Flush 0.9% 10 Ml Syringe IVP 10 ml PRN PRN Administration NEEDED PER PROVIDER ORDERS Sodium Chloride 10 ml 07/15/21 01:00 07/18/21 09:17 Sodium Chloride Flush 0.9% 10 Ml Syringe IVP 10 ml 0100,0900,1700 CAR[facility]A Administration Spironolactone 25 mg 07/16/21 10:00 07/18/21 09:15 Spironolactone 25 Mg Tablet PO 25 mg DAILY [facility] Administration Tamsulosin HCl 0.4 mg 07/15/21 09:00 07/18/21 09:15 Tamsulosin 0.4 Mg Capsule PO 0.4 mg DAILY CARMINA Administration - Lab Result Fish Bone Diagrams: 07/18/21 07:10 07/18/21 07:10 - Additional Planning My Orders: My Active Orders 07/17/21 17:55 Telemetry- [RC] Q4HR 07/18/21 09:00 Losartan [Cozaar] 50 mg PO DAILY Subjective - Subjective Nursing Reports: Confused Objective Vital Signs: Vital Signs - 24 hr 07/17/21 07/18/21 07/18/21 16:00 04:17 05:00 Temperature 36.5 C 36.5 C 36.4 C L Heart Rate 80 Heart Rate [ 80 88 Radial] Respiratory 18 18 20 Rate Blood Pressure [Left Brachial artery] Blood Pressure 133/81 H 116/61 [Right Brachial artery] O2 Saturation 94 94 95 07/18/21 07/18/21 09:00 09:33 Temperature 36.6 C Heart Rate Heart Rate [ 68 Radial] Respiratory 16 Rate Blood Pressure 148/67 H [Left Brachial artery] Blood Pressure [Right Brachial artery] O2 Saturation 92 Oxygen O2 Source Room air I&O (Last 24 Hrs): Intake and Output Totals x24h 07/16/21 07/17/21 07/18/21 23:59 23:59 23:59 Intake Total 1125 2450 200 Output Total 565 1905 825 Balance 560 545 -625 General: Alert, No acute distress, Other (pt has some confused on today.) HEENT: Atraumatic Neck: Supple Lymphatic: no adenopathy Neuro: Alert, Non Focal Cardiovascular: Regular rate, Normal S1, Normal S2 Respiratory: Chest non-tender, No respiratory distress Abdomen: Normal bowel sounds, Soft Extremities: Normal pulses - Results Results: Laboratory Results WBC 8.3 x10^3/uL (4.8-10.8) 07/18/21 07:10 RBC 3.76 10^6/uL (4.70-6.10) L 07/18/21 07:10 Hgb 10.9 g/dL (14.0-18.0) L 07/18/21 07:10 Hct 33.7 % (42.0-52.0) L 07/18/21 07:10 MCV 89.6 fL (80.0-94.0) 07/18/21 07:10 MCH 29.0 pg (27.0-31.0) 07/18/21 07:10 MCHC 32.3 g/dL (32.0-36.0) 07/18/21 07:10 RDW 12.6 % (12.0-15.0) 07/18/21 07:10 Plt Count 189 10^3/uL (130-450) 07/18/21 07:10 MPV 11.2 fL (7.4-11.4) 07/18/21 07:10 Reticulocyte % (Auto) 2.68 % (0.5-2.3) H 07/17/21 04:41 Neut # (Auto) 5.9 10^3/uL (1.5-6.6) 07/18/21 07:10 Lymph # (Auto) 1.1 10^3/uL (1.5-3.5) L 07/18/21 07:10 [place] # (Auto) 1.1 10^3/uL (0.0-1.0) H 07/18/21 07:10 Eos # (Auto) 0.1 10^3/uL (0.0-0.7) 07/18/21 07:10 Baso # (Auto) 0.0 10^3/uL (0.0-0.1) 07/18/21 07:10 Absolute Nucleated RBC 0.00 x10^3/uL 07/18/21 07:10 Nucleated RBC % 0.0 /100WBC 07/18/21 07:10 Absolute Retic 0.107 10^6/uL (0.020-0.110) 07/17/21 04:41 PT 13.3 secs (9.9-12.6) H 07/15/21 07:53 INR 1.2 (0.8-1.2) 07/15/21 07:53 Sodium 137 mmol/L (135-145) 07/18/21 07:10 Potassium 4.1 mmol/L (3.5-5.0) 07/18/21 07:10 Chloride 100 mmol/L (101-111) L 07/18/21 07:10 Carbon Dioxide 26 mmol/L (21-32) 07/18/21 07:10 Anion Gap 11.0 (6-13) 07/18/21 07:10 BUN 15 mg/dL (6-20) 07/18/21 07:10 Creatinine 0.9 mg/dL (0.6-1.2) 07/18/21 07:10 Estimated GFR (MDRD) 82 (>89) L 07/18/21 07:10 Glucose 132 mg/dL (70-100) H 07/18/21 07:10 Estimat Average Glucose 128 mg/dL (70-100) H 07/15/21 04:30 Hemoglobin A1c % 6.1 % (4.27-6.07) H 07/15/21 04:30 Calcium 8.4 mg/dL (8.5-10.3) L 07/18/21 07:10 Iron 24 ug/dL (45-182) L 07/17/21 04:41 TIBC 223 ug/dL (250-450) L 07/17/21 04:41 % Saturation 11 % (20-50) L 07/17/21 04:41 Transferrin 159 mg/dL (180-329) L 07/17/21 04:41 Ferritin 226.3 ng/mL (23.9-336.2) 07/17/21 04:41 Lactate Dehydrogenase 192 IU/L (91-225) 07/17/21 04:41 Troponin I High Sens 5.2 ng/L (2.3-19.7) 07/15/21 07:53 Vitamin B12 304 pg/mL (180-914) 07/17/21 04:41 Nasal Adenovirus (PCR) NOT DETECTED 07/18/21 11:10 Nasal B. parapertussis DNA (PCR) NOT DETECTED 07/18/21 11:10 Nasal Coronavir 229E PCR NOT DETECTED 07/18/21 11:10 Nasal Coronavir HKU1 PCR NOT DETECTED 07/18/21 11:10 Nasal Coronavir NL63 PCR NOT DETECTED 07/18/21 11:10 Nasal Coronavir OC43 PCR NOT DETECTED 07/18/21 11:10 Nasal Enterovir/Rhinovir PCR NOT DETECTED 07/18/21 11:10 Nasal Influenza B PCR NOT DETECTED 07/18/21 11:10 Nasal Influenza A PCR NOT DETECTED 07/18/21 11:10 Nasal Parainfluen 1 PCR NOT DETECTED 07/18/21 11:10 Nasal Parainfluen 2 PCR NOT DETECTED 07/18/21 11:10 Nasal Parainfluen 3 PCR NOT DETECTED 07/18/21 11:10 Nasal Parainfluen 4 PCR NOT DETECTED 07/18/21 11:10 Nasal RSV (PCR) NOT DETECTED 07/18/21 11:10 Nasal B.pertussis DNA PCR NOT DETECTED 07/18/21 11:10 Nasal C.pneumoniae (PCR) NOT DETECTED 07/18/21 11:10 Carlos Human Metapneumo PCR NOT DETECTED 07/18/21 11:10 Nasal M.pneumoniae (PCR) NOT DETECTED 07/18/21 11:10 Nasal SARS-CoV-2 (PCR) NOT DETECTED 07/18/21 11:10 ABX Reporting Has patient been on IV antibiotics over the past 48 hours?: No Current Medications - Current Medications Current Medications: Active Medications Acetaminophen (Acetaminophen 325 Mg Tablet) 650 mg PO Q4HR PRN PRN Reason: Pain 1 to 4 Last Admin: 07/18/21 09:16 Dose: 650 mg Atorvastatin Calcium (Atorvastatin 10 Mg Tablet) 20 mg PO QPM CARMINA Last Admin: 07/17/21 20:08 Dose: 20 mg Calcium Carbonate/Glycine (Calcium Carbonate Chew 500 Mg Tablet) 500 mg PO BID [facility] Last Admin: 07/18/21 09:15 Dose: 500 mg Cholecalciferol (Cholecalciferol 25 Mcg Tablet) 50 mcg PO DAILY [facility] Last Admin: 07/18/21 09:16 Dose: 50 mcg Clopidogrel Bisulfate (Clopidogrel 75 Mg Tablet) 75 mg PO DAILY [facility] Last Admin: 07/18/21 09:15 Dose: 75 mg Donepezil HCl (Donepezil 5 Mg Tablet) 5 mg PO QPM [facility] Last Admin: 07/17/21 20:08 Dose: 5 mg Enoxaparin Sodium (Enoxaparin 40 Mg/0.4 Ml Syringe) 40 mg SUBQ DAILY [facility] Last Admin: 07/18/21 09:16 Dose: 40 mg Ferrous Sulfate (Ferrous Sulfate 325 Mg Tablet) 325 mg PO DAILYWM [facility] Last Admin: 07/18/21 09:16 Dose: 325 mg Fluoxetine HCl (Fluoxetine 10 Mg Capsule) 20 mg PO BID [facility] Last Admin: 07/18/21 09:15 Dose: 20 mg Hydromorphone HCl (Hydromorphone 0.5 Mg/0.5 Ml Syringe) 0.5 mg IVP Q2H PRN PRN Reason: PAIN Last Admin: 07/18/21 11:44 Dose: 0.5 mg Losartan Potassium (Losartan 50 Mg Tablet) 50 mg PO DAILY [facility] Last Admin: 07/18/21 09:15 Dose: 50 mg Ondansetron HCl (Ondansetron Odt 4 Mg Tablet) 4 mg TL Q6HR PRN PRN Reason: Nausea / Vomiting Ondansetron HCl (Ondansetron 4 Mg/2 Ml Vial) 4 mg IVP Q6HR PRN PRN Reason: Nausea / Vomiting Oxycodone HCl (Oxycodone 5 Mg Tablet) 5 mg PO Q4HR PRN PRN Reason: Pain 5 to 7 Last Admin: 07/18/21 11:44 Dose: 5 mg Pantoprazole Sodium (Pantoprazole 40 Mg Tablet) 40 mg PO QDAC [facility] Last Admin: 07/18/21 06:04 Dose: 40 mg Polyethylene Glycol (Polyethylene Glycol 3350 17 Gm Packet) 17 gm PO DAILY [facility] Last Admin: 07/18/21 09:16 Dose: 17 gm Sodium Chloride (Sodium Chloride Flush 0.9% 10 Ml Syringe) 10 ml IVP PRN PRN PRN Reason: NEEDED PER PROVIDER ORDERS Last Admin: 07/17/21 16:24 Dose: 10 ml Sodium Chloride (Sodium Chloride Flush 0.9% 10 Ml Syringe) 10 ml IVP 0100,0900,1700 [facility] Last Admin: 07/18/21 09:17 Dose: 10 ml Spironolactone (Spironolactone 25 Mg Tablet) 25 mg PO DAILY [facility] Last Admin: 07/18/21 09:15 Dose: 25 mg Tamsulosin HCl (Tamsulosin 0.4 Mg Capsule) 0.4 mg PO DAILY [facility] Last Admin: 07/18/21 09:15 Dose: 0.4 mg Atorvastatin [Lipitor] 20 mg PO QPM 07/14/21 Clopidogrel [Plavix] 75 mg PO DAILY 07/14/21 Donepezil [Aricept] 5 mg PO QPM 07/14/21 Ferrous Sulfate 325 mg PO DAILY 07/14/21 Fluoxetine HCl [Prozac] 20 mg PO BID 07/14/21 Losartan [Cozaar] 50 mg PO DAILY 07/14/21 Metoprolol Succinate [Toprol Xl] 50 mg PO DAILY 07/14/21 Pantoprazole Sodium 40 mg PO DAILY 07/14/21 Spironolactone [Aldactone] 25 mg PO DAILY 07/14/21 Tamsulosin [Flomax] 0.4 mg PO DAILY 07/14/21
[2021-07-18 16:24] LABS: ALBUMIN 2.9 g/dL (3.2-5.5); ALBUMIN/GLOBULIN RATIO 0.8 (1.0-2.2); BILIRUBIN,TOTAL 1.2 mg/dL (0.2-1.0); CALCIUM 8.4 mg/dL (8.5-10.3); CREATININE 1.2 mg/dL (0.6-1.2); MAGNESIUM 2.1 mg/dL (1.7-2.8); PHOSPHORUS 2.6 mg/dL (2.5-4.6); POTASSIUM 4.1 mmol/L (3.5-5.0); TOTAL PROTEIN 6.5 g/dL (6.7-8.2)
[2021-07-18] MEDS: DONEPEZIL 5 MG TABLET PO SCH (21:35)
[2021-07-18] MEDS: ATORVASTATIN 10 MG TABLET PO SCH (21:35)
[2021-07-18] MEDS ORDERED: LACTATED RINGERS 1,000 ML IV SCH (23:00)
[2021-07-19] MEDS: SODIUM CHLORIDE FLUSH 0.9% 10 ML SYRINGE IVP SCH ×2 (04:52→08:41)
[2021-07-19 06:08] LABS: BASOPHILS % (AUTO) 0.4 %; EOSINOPHILS # (AUTO) 0.1 10^3/uL (0.0-0.7); EOSINOPHILS % (AUTO) 1.2 %; HCT - HEMATOCRIT 31.8 % (42.0-52.0); HGB - HEMOGLOBIN 10.3 g/dL (14.0-18.0); LYMPHOCYTES % (AUTO) 12.5 %; MEAN CORPUSCULAR HEMOGLOBIN 29.1 pg (27.0-31.0); MEAN CORPUSCULAR HGB CONC 32.4 g/dL (32.0-36.0); MEAN CORPUSCULAR VOLUME 89.8 fL (80.0-94.0); MEAN PLATELET VOLUME 10.8 fL (7.4-11.4); MONOCYTES # (AUTO) 0.9 10^3/uL (0.0-1.0); MONOCYTES % (AUTO) 11.2 %; NEUTROPHILS # (AUTO) 5.6 10^3/uL (1.5-6.6); NEUTROPHILS % (AUTO) 74.2 %; PLT - PLATELET COUNT 196 10^3/uL (130-450); RED BLOOD COUNT 3.54 10^6/uL (4.70-6.10); RED CELL DISTRIBUTION WIDTH 12.8 % (12.0-15.0); WHITE BLOOD COUNT 7.6 x10^3/uL (4.8-10.8)
[2021-07-19 06:12] LABS: CALCIUM 8.5 mg/dL (8.5-10.3); POTASSIUM 3.8 mmol/L (3.5-5.0)
[2021-07-19] MEDS: PANTOPRAZOLE 40 MG TABLET PO SCH ×2 (06:35→08:40)
[2021-07-19] MEDS: CHOLECALCIFEROL 25 MCG TABLET PO SCH (08:39)
[2021-07-19] MEDS: ENOXAPARIN 40 MG/0.4 ML SYRINGE SUBQ SCH (08:39)
[2021-07-19] MEDS: CLOPIDOGREL 75 MG TABLET PO SCH (08:40)
[2021-07-19] MEDS: SPIRONOLACTONE 25 MG TABLET PO SCH (08:40)
[2021-07-19] MEDS: FERROUS SULFATE 325 MG TABLET PO SCH (08:40)
[2021-07-19] MEDS: FLUoxetine 10 MG CAPSULE PO SCH (08:40)
[2021-07-19] MEDS: CALCIUM CARBONATE CHEW 500 MG TABLET PO SCH (08:40)
[2021-07-19] MEDS: LOSARTAN 50 MG TABLET PO SCH (08:41)
[2021-07-19] MEDS: polyethylene glycoL 3350 17 GM PACKET PO SCH (08:41)
[2021-07-19] MEDS: TAMSULOSIN 0.4 MG CAPSULE PO SCH (08:41)
[2021-07-19 10:34] VITALS: BP 143/77
--- NOTE | 2021-07-19 10:42 | Discharge Plan ---
"Discharge Plan for SNF / [facility] - Discharge Plan And Transition Orders Problem Reviewed?: Yes - SNF / [facility] Transition Orders Admit to (Facility): [facility] Discharge Diagnosis: 1. Hip fracture, left 2. Pause in telemetry 3. Fall 4. Pre-Diabetes 5. Dementia 6. Generalied arteriosclerotic disease 7. Afib 8. Idioventricular rhythm Medicare Certification Statement: I certify that [facility] is medically necessary on a continuing basis for any of the conditions for which she/he is receiving care during hospitalization. Notify PCP of admission and forward orders to primary provider for signature. Weight on admission and: Weekly Call PCP immediately if weight increases by: 5 kg Other Notification Orders: Call PCP immediately if patient develops dyspnea, chest pain/tightness or edema. House Bowel Program: Yes Additional Bowel Program Orders: If no BM after 2 days, nurse may give M.O.M. 30ml PO PRN and/or ducolax Supp 1 [place] and/or TIESHA 250mg P.O., and/or senna 1-2 tabs PO. On day 3 nurse may give repeat above order until residents constipation is resolved. Annual Influenza Vaccine (between Feb 19 and September 18): Yes Two-step PPD per [facility] [phone] or approved exception documents: Yes Treatments & Other Orders: Daily PT Medication Orders: PLEASE REFER TO THE DISCHARGE MEDICATION LIST. Insulin Orders?: No - Diet Type: Geriatric Texture: Regular Liquids: Thin May have monthly special meal: Yes - Therapies | Activity Therapy: Evaluation | Treat if indicated: PT, OT Rehabilitation Potential: Maximize functional status, Maintain present ADL Functional Activity: Activity as Tolerated Weight Bearing: Full Weight Assistance Devices: Walker <Sofía Nina L - Last Filed: 07/19/21 10:39> - SNF / [facility] Transition Orders Medicare Certification Statement: I certify that [facility] is medically necessary on a continuing basis for any of the conditions for which she/he is receiving care during hospitalization. Notify PCP of admission and forward orders to primary provider for signature. Other Notification Orders: Call PCP immediately if patient develops dyspnea, chest pain/tightness or edema. Additional Bowel Program Orders: If no BM after 2 days, nurse may give M.O.M. 30ml PO PRN and/or ducolax Supp 1 [place] and/or TIESHA 250mg P.O., and/or senna 1-2 tabs PO. On day 3 nurse may give repeat above order until residents constipation is resolved. Medication Orders: PLEASE REFER TO THE DISCHARGE MEDICATION LIST. <Norma Ace - Last Filed: 07/19/21 11:04> - Discharge Plan And Transition Orders Disposition: 03 [facility] DC/Xfer Condition: Stable Allergies and Adverse Reactions: Allergies Allergy/AdvReac Type Severity Reaction Status Date / Time No Known Drug Allergies Allergy Verified 07/14/21 15:57 Health Concerns: Admitted with left hip fracture, repaired Participated in PT and would cooperate even with dementia Bradycardia and idioventricular rhythm, all of his heart rate slowing meds have been stopped Diabetes is stable Plan of Treatment: Daily PT. Monitor blood sugars and heart rate. Follow up with PCP. Care Goals: Improvement in symptoms and stabilization are the goals. Assessment: These written orders are provided for SNF staff due to Pt dementia. - Medications New Prescriptions: Calcium Carbonate [Calcium Antacid] 300 mg PO DAILY #30 tab.chew Calcium Carbonate [Calcium Antacid] 300 mg PO DAILY #30 tab.chew Oxycodone HCl/Acetaminophen [Oxycodone-Acetaminophn 7.5-325] 1 each PO Q6H #20 tablet Cholecalciferol [Vitamin D3] 50 mcg PO DAILY #30 tablet Cholecalciferol [Vitamin D3] 50 mcg PO DAILY #30 tablet"
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
[2021-07-19] MEDS: ACETAMINOPHEN 325 MG TABLET PO PRN (11:07)
[2021-07-19] MEDS: oxyCODONE 5 MG TABLET PO PRN (11:07)
== END 2021-07-19 11:10 | DRG 522 ==
LOC: ED 15:49 → ICU 17:15 → MS3 18:06
PROVIDERS: ADMIT Specialist; ATTEND Registered Nurse
PROC: 0SRS01A Replacement of Left Hip Joint, Femoral Surface with Metal Synthetic Substitute, Uncemented, Open Approach (ICD-10-PCS; principal; 2021-07-16 10:45)
DX: S72.002A Fracture of unspecified part of neck of left femur, initial encounter for closed fracture (principal); I48.92 Unspecified atrial flutter; W01.0XXA Fall on same level from slipping, tripping and stumbling without subsequent striking against object, initial encounter; Y92.000 Kitchen of unspecified non-institutional (private) residence as the place of occurrence of the external cause; Y93.E5 Activity, floor mopping and cleaning; F03.90 Unspecified dementia, unspecified severity, without behavioral disturbance, psychotic disturbance, mood disturbance, and anxiety; I10 Essential (primary) hypertension; I48.91 Unspecified atrial fibrillation; I70.91 Generalized atherosclerosis; E11.65 Type 2 diabetes mellitus with hyperglycemia; E78.00 Pure hypercholesterolemia, unspecified; K21.9 Gastro-esophageal reflux disease without esophagitis; R00.8 Other abnormalities of heart beat; Z20.822 Contact with and (suspected) exposure to COVID-19; Z79.02 Long term (current) use of antithrombotics/antiplatelets; Z79.899 Other long term (current) drug therapy; Z85.828 Personal history of other malignant neoplasm of skin; Z87.891 Personal history of nicotine dependence; Z95.1 Presence of aortocoronary bypass graft; Z96.641 Presence of right artificial hip joint; Z96.659 Presence of unspecified artificial knee joint
CPT/HCPCS: 36415; 71045; 73502; 80048; 80053; 82607; 82728; 83036; 83540; 83615; 83735; 84100; 84466; 84484; 85025; 85045; 85610; 87631; 93005; 93306; 96374; 96375; 97162; 97165; 97530; 99284; 99285; A9270; J1170; J1650; J3370; J7120; 0202U

== ENCOUNTER 2021-07-24 09:15 | Outpatient (CLI) | payer MEDICARE ==
--- NOTE | 2021-07-24 12:55 | XRAY Report ---
PROCEDURE: Hip 2 View LT, x-ray INDICATIONS: Left hemiarthroplasty, pain. TECHNIQUE: 4 views of the hip were acquired. COMPARISON: 07/14/2021 FINDINGS: Bones: There is now a left hip hemiarthroplasty in good position. No evidence of hardware failure or loosening. Right total hip arthroplasty also good position. The pelvic ring is intact. Degenerative c hanges noted in the lower lumbar spine Soft tissues: No suspicious soft tissue calcifications or masses. IMPRESSION: Left hip hemiarthroplasty in good position. Total right hip arthroplasty unchanged, also in good position. Reviewed by: Michele Hodges MD on 07/24/2021 11:54 AM [place] Approved by: Michele Hodges MD on 07/24/2021 11:54 AM [facility] Station ID: [id number]
== END 2021-07-24 09:16 | disposition home or self-care (01) ==
LOC: DI.WOS 09:15
PROVIDERS: ATTEND Orthopaedic Surgery
DX: Z96.642 Presence of left artificial hip joint (principal); Z96.641 Presence of right artificial hip joint

== ENCOUNTER 2021-11-28 08:00 | Outpatient (CLI) | payer MEDICARE ==
--- NOTE | 2021-11-28 16:24 | XRAY Report ---
PROCEDURE: Ribs w/PA Chest RT INDICATIONS: RIB PAIN, RIGHT SIDED TECHNIQUE: 3 views of the right ribs were acquired, along with a single view chest. COMPARISON: None FINDINGS: Surgical changes and devices: Median sternotomy wires are seen.. Bones and chest wall: Subtle cortical irregularity involving right anterolateral sixth and seventh ri bs are seen concerning for subtle nondisplaced fractures. No suspicious bony lesions. Overlying soft tissues appear unremarkable. Lungs and pleura: No pleural effusions or pneumothorax. Lungs appear clear. Mediastinum: Mediastinal contours appear normal. Heart size is normal. IMPRESSION: Finding is concerning for subtle nondisplaced fracture involving right anterolateral sixth and seven th ribs. No acute cardiopulmonary pathology. Reviewed by: Caleb Merrill MD on 11/28/2021 4:23 PM PDT Approved by: Caleb Merrill MD on 11/28/2021 4:23 PM PDT Station ID: [id number]
== END 2021-11-28 23:59 | disposition home or self-care (01) ==
LOC: DI.N 08:00
PROVIDERS: ATTEND Family Medicine
DX: R07.81 Pleurodynia (principal); R93.7 Abnormal findings on diagnostic imaging of other parts of musculoskeletal system

== ENCOUNTER 2023-08-04 13:30 | Outpatient (CLI) | payer MEDICARE ==
--- NOTE | 2023-08-04 16:40 | XRAY Report ---
PROCEDURE: Chest 2V INDICATIONS: ASTHMATIC BRONCHITIS TECHNIQUE: 2 views of the chest were acquired. COMPARISON: 11/28/2021 x-ray RIBS. FINDINGS: Surgical changes and devices: Median sternotomy wires are present.. Lungs and pleura: No pleural effusions or pneumothorax. Lungs are clear. Mediastinum: Mediastinal contours appear normal. Heart size is normal. Bones and chest wall: No suspicious bony lesions. Overlying soft tissues appear unremarkable. IMPRESSION: No acute cardiopulmonary process. Reviewed by: Oh Craig MD on 08/04/2023 4:39 PM PST Approved by: Oh Craig MD on 08/04/2023 4:39 PM PST Station ID: [id number]
== END 2023-08-04 13:45 | disposition home or self-care (01) ==
LOC: DI.N 13:30
PROVIDERS: ATTEND Family Medicine
DX: J45.909 Unspecified asthma, uncomplicated (principal)